=== PATIENT | male | born 1965 | race Caucasian/White ===

== ENCOUNTER → 2016-10-12 | Day surgery (SDC) | payer OTHER ==
[2016-10-05 15:03] VITALS: Ht 157.5 cm; Wt 113.6 kg
[~2016-10-12] VITALS: Ht 157.5 cm; Wt 113.6 kg
[~2016-10-12] MED LIST: ALBU0.08 INH; ALLO300T2 PO; CITA20TA4 PO; IPRASOL34 INH; LEVO88TA3 PO; LIDOCAINE HCL 2% 2 ML VIAL (20MG/ML) ONE; OXGN; PRLSR20 PO; PROPOFOL IV EMULSION 10 MG/ML 20 ML VIAL IV ONE; SODIUM CHLORIDE 0.9% 500ML 500 ML IV ONE; SYMIN160 INH; UMEC1INH INH
--- NOTE | 2016-10-12 10:25 | Endo History and Physical ---
History & Physical Date of Service: Oct 12, 2016. Chief Complaint: Blood in Stool Referring Physician: Dr Silverio Nava History of Present Illness 51 yo CM who presents for colonoscopy secondary to blood in stool. 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., Anxiety, Reflux, Sleep Apnea, COPD, Thyroid Disease, Depression Past Surgical History Hx Cardiac Surgery: No Hx Internal Defibrillator: No Hx Pacemaker: No Hx Abdominal Surgery: No Hx of Implantable Prosthesis: No Hx Post-Op Nausea and Vomiting: No Hx Cancer Surgery: No Hx Thoracic Surgery: Yes (LEFT VATS PROCEDURE, LUNG BIOPSY-BRONCH) Hx Orthopedic: No Hx Urinary Tract Surgery: Yes (VASECTOMY) Family History Polyp Social History Smoking Status: Never Smoker Hx Substance Use: No Hx Alcohol Use: No Allergies Coded Allergies: No Known Allergies (Unverified , 10/12/16) Current Medications Reported Home Medications Medications Dose Route/Sig Max Daily Dose Days Date Category Prilosec (Omeprazole) 20 Mg Capcr 20 Mg PO DAILYBB 10/12/16 Reported Oxygen Gas 2 Liters NA HS 10/05/16 Reported Citalopram Hydrobromide 20 Mg Tab 1.5 Tab PO QAM 90 10/05/16 Reported Incruse Ellipta (Umeclidinium [place]) 62.5 Mcg/Inh Inh 1 Dose INH QAM 10/05/16 Reported Symbicort 160/4.5 Inhaler (Budesonide/Formoterol Fumarate) Aero 2 Puffs INH QAM 10/05/16 Reported Zyloprim (Allopurinol) 300 Mg Tab 300 Mg PO QAM 10/05/16 Reported Levothyroxine Sodium 88 Mcg Tab 1 Tab PO QAM 90 10/05/16 Reported Duoneb (Albuterol/Ipratropium) Kimberly 1 Treatment INH BID 11/26/13 Reported Vital Signs Weight (Kilograms): 113.64 Height (Feet): 5 Height (Inches): 2 Date Time Temp Pulse Resp B/P Pulse Ox O2 Delivery O2 Flow Rate FiO2 10/12/16 10:06 36.8 77 18 119/79 91 Room Air Physical Exam General Appearance: WD/WN, no apparent distress Respiratory/Chest: Auscultation: breath sounds normal Cardiovascular: Heart Auscultation: RRR Abdomen: Bowel Sounds: normal Inspection & Palpation: soft, non-distended, no tenderness, guarding & rebound Assessment and Plan Assessment: 51 yo CM who presents for colonoscopy secondary to blood in stool. Plan: Proceed with colonoscopy.
--- NOTE | 2016-10-12 11:00 | Discharge Instructions ---
Endoscopy Patient Instructions Date / Procedure(s) Performed Oct 12, 2016. Colonoscopy Allergy Information Coded Allergies: No Known Allergies (Unverified , 10/12/16) Discharge Date / Findings Oct 12, 2016. Diverticulosis Internal hemorrhoids Medication Instructions OK to resume all medications today as prescribed Reported Home Medications Medications Dose Route/Sig Max Daily Dose Days Date Category Prilosec (Omeprazole) 20 Mg Capcr 20 Mg PO DAILYBB 10/12/16 Reported Oxygen Gas 2 Liters NA HS 10/05/16 Reported Citalopram Hydrobromide 20 Mg Tab 1.5 Tab PO QAM 90 10/05/16 Reported Incruse Ellipta (Umeclidinium Dozier) 62.5 Mcg/Inh Inh 1 Dose INH QAM 10/05/16 Reported Symbicort 160/4.5 Inhaler (Budesonide/Formoterol Fumarate) Aero 2 Puffs INH QAM 10/05/16 Reported Zyloprim (Allopurinol) 300 Mg Tab 300 Mg PO QAM 10/05/16 Reported Levothyroxine Sodium 88 Mcg Tab 1 Tab PO QAM 90 10/05/16 Reported Duoneb (Albuterol/Ipratropium) Kimberly 1 Treatment INH BID 11/26/13 Reported Provider Instructions Activity Restrictions - No exercising or heavy lifting for 24 hours. - Do not drink alcohol the day of the procedure. - Do not drive a car or operate machinery until the day after the procedure. - Do not make any important decisions or sign important papers in 24 hours after the procedure. Following Day: - Return to full activity which may include returning to work/school. Diet Start your diet with liquids and light foods (jello, soup, juice, toast). Then eat your usual diet if not nauseated. Treatment For Common After Affects For mild abdominal pain, bloating, or excessive gas: - Rest - Eat lightly - Lie on right side Follow-Up Information Follow-up with Dr Mendez,Dr Sawyer as scheduled Anesthesia Information What You Should Know You have had a procedure that required some medicine to reduce anxiety and discomfort. This treatment is called moderate sedation. After receiving the treatment, you may be sleepy, but you will be able to breathe on your own. The effects of the treatment may last for several hours. Follow these instructions along with Activity/Diet recommendations noted above: * Do NOT do anything where dizziness or clumsiness would be dangerous. * Rest quietly at home today, then you can be up and about tomorrow. * Have a responsible person stay with you the rest of today. * You may have had an I.V. today. If so, you may take the dressing off later today. Recommendations Call your doctor if: * Trouble breathing * Continuous vomiting for more than 24 hours * Temperature above 101 degrees * Severe abdominal pain or bloating * Pain not relieved by pain medicine ordered * There is increased drainage or redness from any incision * A large amount of rectal bleeding greater than 2-3 tablespoons. (If you had a polyp/s removed or have hemorrhoids, a small amount of blood - from the rectum is to be expected.) * You have any unanswered questions or concerns. IN THE EVENT OF A SERIOUS EMERGENCY, GO TO THE NEAREST EMERGENCY ROOM Your discharge instructions were prepared by provider Devin Dutta. Patient Instructions Signature Page Billy Alves Patient (or Guardian) Signature/Date: I have read and understand the instructions given to me by my caregivers. Caregiver/RN/Doctor Signature/Date: The above-named patient and/or guardian has received patient instructions on this date. + Original Patient Signature Page (only) stays with chart. Please make copy for patient.
--- NOTE | 2016-10-12 11:06 | GI REPORT ---
Procedure Date: 10/12/2016 10:37 AM Procedure: Colonoscopy Indications: Rectal bleeding Medicines: Monitored Anesthesia Care Complications: No immediate complications. Estimated Blood Loss: Estimated blood loss: none. Procedure: Pre-Anesthesia Assessment: - Prior to the procedure, a History and Physical was performed, and patient medications and allergies were reviewed. The patient's tolerance of previous anesthesia was also reviewed. The risks and benefits of the procedure and the sedation options and risks were discussed with the patient. All questions were answered, and informed consent was obtained. Prior Anticoagulants: The patient has taken no previous anticoagulant or antiplatelet agents. ASA Grade Assessment: III - A patient with severe systemic disease. After reviewing the risks and benefits, the patient was deemed in satisfactory condition to undergo the procedure. After I obtained informed consent, the scope was passed under direct vision. Throughout the procedure, the patient's blood pressure, pulse, and oxygen saturations were monitored continuously. The On-site loaner was introduced through the anus and advanced to the terminal ileum. The colonoscopy was performed without difficulty. The patient tolerated the procedure well. The quality of the bowel preparation was good. The terminal ileum, ileocecal valve, appendiceal orifice, and rectum were photographed. Findings: Multiple small-mouthed diverticula were found in the sigmoid colon. Non-bleeding internal hemorrhoids were found during retroflexion. The hemorrhoids were small. Impression: - Diverticulosis in the sigmoid colon. - Non-bleeding internal hemorrhoids. - No specimens collected. Recommendation: - Resume previous diet. - Continue present medications. - Repeat colonoscopy in 10 years for surveillance. - Return to primary care physician as previously scheduled. Devin Dutta, DO 10/12/2016 11:05:57 AM This report has been signed electronically. Note Initiated On: 10/12/2016 10:37 AM I attest to the content of the Intraoperative Record and orders documented therein, exceptions below
[2016-10-12 11:29] VITALS: BP 158/96; PULSE 69; O2SAT 93
--- NOTE | 2016-10-12 14:03 | Anesthesiology Progress Note ---
Anesthesia Post Op Note Date & Time Oct 12, 2016 at 14:03 Vital Signs Pain Intensity: 0 Vital Signs Past 12 Hours Date Time Temp Pulse Resp B/P Pulse Ox O2 Delivery O2 Flow Rate FiO2 10/12/16 11:29 69 18 158/96 93 Room Air 10/12/16 11:15 74 18 158/97 94 Room Air 10/12/16 11:00 77 18 98/57 95 Room Air 10/12/16 10:06 36.8 77 18 119/79 91 Room Air Notes Mental Status: alert / awake / arousable, participated in evaluation Pt Amnestic to Procedure: Yes Nausea / Vomiting: adequately controlled Pain: adequately controlled Airway Patency, RR, SpO2: stable & adequate BP & HR: stable & adequate Hydration State: stable & adequate Anesthetic Complications: no major complications apparent
== END | disposition home or self-care (01) ==
LOC: C.GI 09:34
PROVIDERS: ATTEND Internal Medicine
DX: K62.5 Hemorrhage of anus and rectum (principal); K57.30 Diverticulosis of large intestine without perforation or abscess without bleeding; K64.8 Other hemorrhoids; K21.9 Gastro-esophageal reflux disease without esophagitis; F41.9 Anxiety disorder, unspecified; F32.9 Major depressive disorder, single episode, unspecified; J44.9 Chronic obstructive pulmonary disease, unspecified; G47.30 Sleep apnea, unspecified; E07.9 Disorder of thyroid, unspecified; Z98.890 Other specified postprocedural states

== ENCOUNTER 2017-12-15 13:43 | Inpatient (IN) | payer OTHER ==
[~2017-12-15] VITALS: Ht 157.5 cm; Wt 112.0 kg
[~2017-12-15 13:43] MED LIST changes: -ALBU0.08 INH; -ALLO300T2 PO; -CITA20TA4 PO; -LIDOCAINE HCL 2% 2 ML VIAL (20MG/ML) ONE; -OXGN; -PROPOFOL IV EMULSION 10 MG/ML 20 ML VIAL IV ONE; -SODIUM CHLORIDE 0.9% 500ML 500 ML IV ONE; -UMEC1INH INH
--- NOTE | 2017-12-15 14:13 | EMERGENCY ROOM VISIT NOTE ---
History Report prepared by Oswald: Rodolfo Machado Under the Supervision of: Dr. Jamin Puckett M.D. First contact with patient: 14:06 Chief Complaint: SYNCOPE Stated Complaint: PASSED OUT FELL ON FLOOR History of Present Illness The patient is a 52 year old male who presents to the Emergency Room via EMS with complaints of a syncopal episode that occurred prior to arrival today. Per the patient's , the patient was talking with family, and he started with a cough, and then had garbled speech. The patient then went to stand up, and he keeled over, fell, and passed out to the ground. After he was down on the ground , he kept jerking "like he was having a seizure". The patient took about 3 to 4 minutes to get back to normal mental status. Per the patient's , the patient had a lot of blood in his stool a couple months ago, but was never seen for that. 2 weeks ago, the patient was seen at an ED for abdominal pain that the patient states that he still has been having. The patient adds that his chest is tight at the moment. Per the patient's , the patient has a noted lump on the back of his head. Source of History: patient, spouse/significant other Onset: [employer] ENG[employer]ER today Position: other (global) Symptom Intensity: took 3 to 4 minutes to get back to normal mental status Quality: other (syncope) Timing: other (episode) Associated Symptoms: + LOC, + chest pain, + abdominal pain Note: Associated symptoms: Jerking on ground during episode. Review of Systems See HPI for pertinent positives and negatives. A total of ten systems were reviewed and were otherwise negative. Past Medical & Surgical Medical Problems: (1) COPD (chronic obstructive pulmonary disease) (2) Depression (3) GERD (gastroesophageal reflux disease) (4) Gout (5) Hypothyroidism (6) Hypothyroidism (7) Kidney stone (8) Nephrolithiasis (9) Nocturnal hypoxia (10) Pulmonary sarcoidosis Surgical Problems: (1) H/O vasectomy Family History No pertinent family history Social History Smoking Status: Never Smoker Drug Use: none Marital Status: Housing Status: lives with family Occupation Status: employed Current/Historical Medications Scheduled Allopurinol (Zyloprim), 300 MG PO QAM Citalopram Hydrobromide (Citalopram Hydrobromide), 10 MG PO DAILY Ergocalciferol (Vitamin D 64923 Unit), 1 CAP PO WK Home O2 Therapy (Oxygen), 2 LITERS NA PRN Levothyroxine Sodium (Levothyroxine Sodium), 100 MCG PO DAILY Omeprazole (Prilosec), 20 MG PO DAILYBB Umeclidinium Elmo (Incruse Ellipta), 1 DOSE INH QAM Scheduled PRN Acetaminophen (Tylenol), 1,000 MG PO Q6 PRN for Headache or Pain Ipratropium-Albuterol (Duoneb), 1 TREATMENT INH BID PRN for SOB/Wheezing Allergies Coded Allergies: No Known Allergies (Unverified , 10/12/16) Physical Exam Vital Signs Date Time Temp Pulse Resp B/P (MAP) Pulse Ox O2 Delivery O2 Flow Rate FiO2 12/15/17 19:25 68 18 131/89 94 12/15/17 18:58 68 18 131/89 94 Room Air 12/15/17 16:59 60 18 137/86 12/15/17 15:25 36.8 81 18 127/87 96 Room Air 12/15/17 14:26 73 12/15/17 13:48 36.5 77 20 162/115 96 Room Air Physical Exam Physical Exam GENERAL: He is oriented to person, place, and time. He appears well-developed and well-nourished. He does not appear distressed. ____ HENT: Exam performed. Head: Normocephalic and atraumatic. Right Ear: External ear normal. No mastoid tenderness. Left Ear: External ear normal. No mastoid tenderness. Mouth/Throat: The oropharynx is clear and moist. No trismus in the jaw. No dental abscesses or uvula swelling. No oropharyngeal exudate or tonsillar abscesses. ____ EYES: Conjunctivae and EOM are normal. Pupils are equal, round, and reactive to light. Right eye exhibits no discharge. Left eye exhibits no discharge. No scleral icterus. ____ NECK: Normal range of motion. Neck supple. No JVD present. No spinous process tenderness present. No carotid bruit present. No rigidity. No tracheal deviation and normal range of motion present. No Brudzinski's sign and no Kernig 's sign noted. ____ CV: Normal rate, regular rhythm, normal heart sounds and intact distal pulses. There is no peripheral edema. Palpable radial pulses bue. ____ PULM/CHEST: Effort normal and breath sounds normal. No respiratory distress. No stridor. He has no wheezes. He has no rales. Chest Wall: He exhibits no tenderness. ____ ABD: The abdomen is soft. Bowel sounds are normal. He has no distension. No mass is present. There is no tenderness. There is no rebound, no guarding, no Sharma's sign and no tenderness at McBurney's point. Rovsig negative MUSC/SKEL: Normal range of motion. There is no peripheral edema, tenderness or deformity. LYMPH: No cervical adenopathy. ____ NEURO: He is alert and oriented to person, place, and time. He has normal strength. No cranial nerve deficit or sensory deficit. Coordination and gait normal. GCS eye subscore is 4. GCS verbal subscore is 5. GCS motor subscore is 6. Cerebellar tests wnl. ____ SKIN: Skin is warm and dry. He is not diaphoretic. ____ PSYCH: He has a normal mood and affect. He behavior is normal. Judgment and thought content normal. ____ Medical Decision & Procedures ER Provider Diagnostic Interpretation: Radiology results as stated below per my review and radiologist interpretation: HEAD WITHOUT CONTRAST (CT) CLINICAL HISTORY: 52 years-old Male with syncope vs seizure. Acute nausea with syncope and headache TECHNIQUE: Multiple axial CT images of the head were obtained without contrast. A dose lowering technique was utilized adhering to the principles of ALARA. CT DOSE: 614.27 mGy.cm COMPARISON: None. FINDINGS: No acute intracranial hemorrhage, midline shift, intracranial mass, hydrocephalus, territorial ischemia or abnormal extra-axial collection. The calvarium is intact. The paranasal sinuses, mastoid air cells, and middle ear cavities are clear. Suggested postsurgical changes of the right mastoid air cells. IMPRESSION: No acute intracranial abnormal abnormality. The above report was generated using voice recognition software. It may contain grammatical, syntax or spelling errors. Electronically signed by: Ed Justin M.D. 12/15/2017 2:54 PM Dictated Date/Time: 12/15/2017 2:52 PM CHEST 2 VIEWS ROUTINE CLINICAL HISTORY: 52 years-old Male presenting with syncope vs seizure. TECHNIQUE: PA and lateral views of the chest were obtained. COMPARISON: 06/15/2016. FINDINGS: Atherosclerosis of aortic arch. Cardiac silhouette enlarged. Lungs and pleural spaces clear. Degenerative changes of the thoracic spine. Upper abdomen normal. IMPRESSION: 1. Cardiomegaly. No other convincing evidence of acute cardiopulmonary disease. Electronically signed by: Israel Umana M.D. 12/15/2017 3:54 PM Dictated Date/Time: 12/15/2017 3:53 PM Laboratory Results 12/15/17 14:30 Red Blood Count 4.85, Mean Corpuscular Volume 90.1, Mean Corpuscular Hemoglobin 30.9, Mean Corpuscular Hemoglobin Concent 34.3, Mean Platelet Volume 9.8, Neutrophils (%) (Auto) 58.5, Lymphocytes (%) (Auto) 25.5, Monocytes (%) (Auto) 11.9, Eosinophils (%) (Auto) 3.3, Basophils (%) (Auto) 0.5, Neutrophils # (Auto ) 3.60, Lymphocytes # (Auto) 1.57, Monocytes # (Auto) 0.73, Eosinophils # (Auto ) 0.20, Basophils # (Auto) 0.03 12/15/17 14:30 Test 12/15/17 14:30 12/15/17 15:32 12/15/17 20:00 White Blood Count 6.15 K/uL (4.8-10.8) Red Blood Count 4.85 M/uL (4.7-6.1) Hemoglobin 15.0 g/dL (14.0-18.0) Hematocrit 43.7 % (42-52) Mean Corpuscular Volume 90.1 fL (80-100) Mean Corpuscular Hemoglobin 30.9 pg (25-34) Mean Corpuscular Hemoglobin Concent 34.3 g/dl (32-36) Platelet Count 228 K/uL (130-400) Mean Platelet Volume 9.8 fL (7.4-10.4) Neutrophils (%) (Auto) 58.5 % Lymphocytes (%) (Auto) 25.5 % Monocytes (%) (Auto) 11.9 % Eosinophils (%) (Auto) 3.3 % Basophils (%) (Auto) 0.5 % Neutrophils # (Auto) 3.60 K/uL (1.4-6.5) Lymphocytes # (Auto) 1.57 K/uL (1.2-3.4) Monocytes # (Auto) 0.73 K/uL (0.11-0.59) Eosinophils # (Auto) 0.20 K/uL (0-0.5) Basophils # (Auto) 0.03 K/uL (0-0.2) RDW Standard Deviation 41.6 fL (36.4-46.3) RDW Coefficient of Variation 12.8 % (11.5-14.5) Immature Granulocyte % (Auto) 0.3 % Immature Granulocyte # (Auto) 0.02 K/uL (0.00-0.02) Prothrombin Time 10.1 SECONDS (9.0-12.0) Prothromb Time International Ratio 1.0 (0.9-1.1) Anion Gap 8.0 mmol/L (3-11) Est Creatinine Clear Calc Drug Dose 83.8 ml/min Estimated GFR () 87.1 Estimated GFR (Non- 75.1 BUN/Creatinine Ratio 15.6 (10-20) Calcium Level 9.0 mg/dl (8.5-10.1) Magnesium Level 2.1 mg/dl (1.8-2.4) Total Bilirubin 0.6 mg/dl (0.2-1) Direct Bilirubin 0.1 mg/dl (0-0.2) Aspartate Amino Transf (AST/SGOT) 30 U/L (15-37) Alanine Aminotransferase (ALT/SGPT) 54 U/L (12-78) Alkaline Phosphatase 90 U/L (45-117) Total Protein 7.5 gm/dl (6.4-8.2) Albumin 4.1 gm/dl (3.4-5.0) Lipase 167 U/L (73-393) Thyroid Stimulating Hormone (TSH) 6.610 uIu/ml (0.300-4.500) Bedside Glucose 83 mg/dl (70-99) Laboratory results reviewed by me Medications Administered Medications (Trade) Dose Ordered Sig/Francesca Route Start Time Stop Time Status Last Admin Dose Admin Aspirin (Aspirin Chew) 324 mg NOW STAT PO 12/15/17 18:25 12/15/17 18:46 DC 12/15/17 19:01 324 MG ECG Per My Interpretation Indication: syncope Rate (beats per minute): 69 Rhythm: sinus rhythm Findings: other (WI, QRS, and QTC intervals are within normal limits. No ST elevation or ST depression.) Comparison ECG Date: compared to EKG done on April 2015, new T-wave inversion in lead 3 ED Course 1408: The patient was evaluated in room C1B. A complete history and physical exam was performed. 1614: I reevaluated the patient and his vital signs are stable. Labs and imaging are within normal limits. The patient had a questionable syncope versus seizure episode, and given his reporting of chest pain, I recommended placing the patient in the hospital for seizure versus syncope workup. The patient and at bedside agree that the patient needs to stay given the patient has poor follow-up and has not followed-up after any previous ER visits. I discussed the patient with Chelsea Friedman - she will evaluate the patient for further treatment. Medical Decision vital signs are stable. Labs and imaging are within normal limits. The patient had a questionable syncope versus seizure episode, and given his reporting of chest pain, I recommended placing the patient in the hospital for seizure versus syncope workup. The patient and at bedside agree that the patient needs to stay given the patient has poor follow-up and has not followed-up after any previous ER visits. I discussed the patient with Chelsea Friedman - she will evaluate the patient for further treatment. Medication Reconcilliation Current Medication List: was personally reviewed by me Blood Pressure Screening Patient's blood pressure: Normal blood pressure Consults Time Called: 1615 Consulting Physician: Chelsea Friedman Returned Call: 1617 I discussed the patient with Chelsea Friedman - she will evaluate the patient for further treatment. Impression Primary Impression: Syncope Additional Impression: Chest pain Scribe Attestation The scribe's documentation has been prepared under my direction and personally reviewed by me in its entirety. I confirm that the note above accurately reflects all work, treatment, procedures, and medical decision making performed by me. The chart was completed utilizing [employer] voice recognition software. Grammatical errors, random word insertions, pronoun errors, and incomplete sentences are an occasional consequence of this system due to software limitations, ambient noise, and hardware issues. Any formal questions or concerns about the content, text, or information contained within the body of this dictation should be directly addressed to the physician for clarification. Departure Information Dispostion Being Evaluated By Hospitalist Referrals No Doctor, Assigned (PCP) Patient Instructions My [facility] Problem Qualifiers Primary Impression: Syncope Syncope type: unspecified Qualified Codes: R55 - Syncope and collapse Additional Impression: Chest pain Chest pain type: unspecified Qualified Codes: R07.9 - Chest pain, unspecified
--- NOTE | 2017-12-15 14:55 | DIAGNOSTIC IMAGING REPORT ---
HEAD WITHOUT CONTRAST (CT) CLINICAL HISTORY: 52 years-old Male with syncope vs seizure. Acute nausea with syncope and headache TECHNIQUE: Multiple axial CT images of the head were obtained without contrast. A dose lowering technique was utilized adhering to the principles of ALARA. CT DOSE: 614.27 mGy.cm COMPARISON: None. FINDINGS: No acute intracranial hemorrhage, midline shift, intracranial mass, hydrocephalus, territorial ischemia or abnormal extra-axial collection. The calvarium is intact. The paranasal sinuses, mastoid air cells, and middle ear cavities are clear. Suggested postsurgical changes of the right mastoid air cells. IMPRESSION: No acute intracranial abnormal abnormality. The above report was generated using voice recognition software. It may contain grammatical, syntax or spelling errors. Electronically signed by: Ed Justin M.D. 12/15/2017 2:54 PM Dictated Date/Time: 12/15/2017 2:52 PM
[2017-12-15 14:57] LABS: BASO % 0.5 %; BASO ABS # 0.03 K/uL (0-0.2); EOS % 3.3 %; HEMATOCRIT 43.7 % (42-52); IG# 0.02 K/uL (0.00-0.02); LYMPH % 25.5 %; LYMPH ABS # 1.57 K/uL (1.2-3.4); MEAN CELL VOLUME 90.1 fL (80-100); MEAN CORPUSCULAR HEMOGLOBIN 30.9 pg (25-34); MEAN CORPUSCULAR HGB CONC 34.3 g/dl (32-36); MEAN PLATELET VOLUME 9.8 fL (7.4-10.4); MONO % 11.9 %; MONO ABS # 0.73 K/uL (0.11-0.59); NEUT % 58.5 %; PLATELET COUNT 228 K/uL (130-400); RED CELL DISTRIBUTION WIDTH CV 12.8 % (11.5-14.5); RED CELL DISTRIBUTION WIDTH SD 41.6 fL (36.4-46.3); WHITE BLOOD COUNT 6.15 K/uL (4.8-10.8)
[2017-12-15] MEDS ORDERED: ALLO300T2 PO (15:02)
[2017-12-15] MEDS ORDERED: CITA20TA4 PO (15:02)
[2017-12-15] MEDS ORDERED: OXGN (15:02)
[2017-12-15] MEDS ORDERED: UMEC1INH INH (15:02)
[2017-12-15 15:16] LABS: BLOOD UREA NITROGEN 18 mg/dl (7-18); CARBON DIOXIDE 24 mmol/L (21-32); CREATININE 1.12 mg/dl (0.60-1.40); GLUCOSE 87 mg/dl (70-99); POTASSIUM 3.9 mmol/L (3.5-5.1); SODIUM 138 mmol/L (136-145)
--- NOTE | 2017-12-15 15:56 | DIAGNOSTIC IMAGING REPORT ---
CHEST 2 VIEWS ROUTINE CLINICAL HISTORY: 52 years-old Male presenting with syncope vs seizure. TECHNIQUE: PA and lateral views of the chest were obtained. COMPARISON: 06/15/2016. FINDINGS: Atherosclerosis of aortic arch. Cardiac silhouette enlarged. Lungs and pleural spaces clear. Degenerative changes of the thoracic spine. Upper abdomen normal. IMPRESSION: 1. Cardiomegaly. No other convincing evidence of acute cardiopulmonary disease. Electronically signed by: Israel Umana M.D. 12/15/2017 3:54 PM Dictated Date/Time: 12/15/2017 3:53 PM
[2017-12-15] MEDS ORDERED: LEVO100T7 PO (16:53)
[2017-12-15] MEDS ORDERED: ERGO500011 PO (16:53)
[2017-12-15] MEDS ORDERED: IPRASOL4 INH (16:55)
[2017-12-15] MEDS ORDERED: ACET-1256 PO (16:55)
[2017-12-15] MEDS ORDERED: ONDANSETRON INJ 2 MG/ML 2 ML VIAL IV PRN (18:00)
[2017-12-15] MEDS ORDERED: POLYETHYLENE (MIRALAX) 17 GM PACK PO PRN (18:00)
[2017-12-15] MEDS ORDERED: ASPIRIN 81 MG CHEW PO STA (18:25)
[2017-12-15] MEDS ORDERED: CITA10TA4 PO (18:25)
[2017-12-15] MEDS ORDERED: ALBUT/IPRATROP 3MG/0.5MG NEB 3 ML VIAL INH PRN (18:30)
--- NOTE | 2017-12-15 18:54 | History and Physical ---
History & Physical Date & Time of Service: Dec 15, 2017 at 18:30 Chief Complaint: Passed Out Fell On Floor Primary Care Physician: Leonor Dorman History of Present Illness Source: patient, spouse, hospital records The patient is a 52-year-old man who presents to the emergency room via EMS reporting a syncopal episode that occurred prior to arrival. Per the patient's , the patient was talking with family and he started with a cough. He then had garbled speech subsequently stood up and passed out onto the floor. After he was down on the ground he continued to jerk "like he was having a seizure." The patient's reports that his arms and legs were moving his eyes were staring straight forward, and he was unresponsive. She states that he was not speaking during this time. This time. Lasted 3-4 minutes after which time the patient was of normal mental status and went to get up off the ground and sit on a chair close by. The patient does not remember the jerking episode. He does remember talking to his shortly after the episode and telling her not to call 911. Review of systems reveals some slight chest pain in the mid substernal region that is been present consistently for the last 2 weeks but is worse with exertion. The patient chronically sweats and has chronic shortness of breath from pulmonary sarcoid without worsening recently, and does not know if these symptoms are related to his chest pain. He otherwise cannot identify a trigger for the chest pain other than the exertion. Another symptom that is worse with exertion is numbness in his hands and his feet bilaterally as well as in his entire face bilaterally. This is a chronic symptom for him. Historically he reports a large amount of blood in his stool a couple of months ago and some intermittent right upper quadrant abdominal pain that has been going on for 2 weeks now. The patient cannot identify a trigger for the abdominal pain. He reports infraumbilical pain that has been there for a couple of years; he reports a normal colonoscopy in the last 12 months. He denies speaking with a doctor about his lower abdominal pain. He reports having chest tightness currently. The patient denies any history of seizures, passing out or any strokelike symptoms in the past. He reports a chronic headache that somewhat appears associated with the face tingling. Aside from the cough that was productive of mucus giving him some nausea this morning, he reports no history of cough recently, no fevers or chills recently. He denies any UTI symptoms or any other infectious symptoms. Past Medical/Surgical History Medical Problems: (1) COPD (chronic obstructive pulmonary disease) Status: Chronic (2) Depression Status: Chronic (3) GERD (gastroesophageal reflux disease) Status: Chronic (4) Gout Status: Chronic (5) Hypothyroidism Status: Chronic (6) Hypothyroidism Status: Chronic (7) Kidney stone Status: Resolved (8) Nephrolithiasis Status: Chronic (9) Nocturnal hypoxia Status: Chronic (10) Pulmonary sarcoidosis Permanent Comment: s/p VATS Status: Chronic Surgical Problems: (1) H/O vasectomy Status: Chronic Family History FH: seizures MOTHER Social History Smoking Status: Never Smoker Smokeless Tobacco Use: Yes Drug Use: none Marital Status: Housing status: lives with significant other Occupational Status: employed Immunizations History of Influenza Vaccine: Unknown History of Tetanus Vaccine?: Unknown History of Pneumococcal: Unknown History of Hepatitis B Vaccine: Unknown Allergies Coded Allergies: No Known Allergies (Unverified , 10/12/16) Home Medications Scheduled Allopurinol (Zyloprim), 300 MG PO QAM Citalopram Hydrobromide (Citalopram Hydrobromide), 10 MG PO DAILY Ergocalciferol (Vitamin D 05893 Unit), 1 CAP PO WK Home O2 Therapy (Oxygen), 2 LITERS NA PRN Levothyroxine Sodium (Levothyroxine Sodium), 100 MCG PO DAILY Omeprazole (Prilosec), 20 MG PO DAILYBB Umeclidinium [place] (Incruse Ellipta), 1 DOSE INH QAM Scheduled PRN Acetaminophen (Tylenol), 1,000 MG PO Q6 PRN for Headache or Pain Ipratropium-Albuterol (Duoneb), 1 TREATMENT INH BID PRN for SOB/Wheezing Review of Systems At least 10 systems were reviewed and negative except as indicated in HPI. Physical Exam Vital Signs Date Time Temp Pulse Resp B/P (MAP) Pulse Ox O2 Delivery O2 Flow Rate FiO2 12/15/17 15:25 36.8 81 18 127/87 96 Room Air 12/15/17 14:26 73 12/15/17 13:48 36.5 77 20 162/115 96 Room Air General Appearance: no apparent distress, + obese Head: normocephalic, atraumatic Eyes: normal inspection, PERRL, EOMI, sclerae normal ENT: hearing grossly normal, pharynx normal Neck: supple, no adenopathy, no JVD, trachea midline Respiratory/Chest: lungs clear, normal breath sounds, no respiratory distress, no accessory muscle use, + pertinent finding (Tenderness to palpation of left sternal border) Cardiovascular: regular rate, rhythm, no edema, no gallop, no JVD, no murmur, normal peripheral pulses Abdomen/GI: normal bowel sounds, soft, no organomegaly, + tenderness ( Tenderness to palpation with guarding in right upper quadrant and infraumbilical area) Back: normal inspection Extremities/Musculoskelatal: normal inspection, no pedal edema, normal range of motion 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, no motor/sensory deficits, alert, normal mood/affect, normal reflexes, oriented x 3, + pertinent finding ( Negative Romberg, negative finger to nose, negative rapid alternating movements) Skin: normal color, warm/dry, no rash Diagnostics Laboratory Results 12/15/17 14:30 Red Blood Count 4.85, Mean Corpuscular Volume 90.1, Mean Corpuscular Hemoglobin 30.9, Mean Corpuscular Hemoglobin Concent 34.3, Mean Platelet Volume 9.8, Neutrophils (%) (Auto) 58.5, Lymphocytes (%) (Auto) 25.5, Monocytes (%) (Auto) 11.9, Eosinophils (%) (Auto) 3.3, Basophils (%) (Auto) 0.5, Neutrophils # (Auto ) 3.60, Lymphocytes # (Auto) 1.57, Monocytes # (Auto) 0.73, Eosinophils # (Auto ) 0.20, Basophils # (Auto) 0.03 12/15/17 14:30 Test 12/15/17 14:30 12/15/17 15:32 12/15/17 18:06 12/15/17 18:27 White Blood Count 6.15 K/uL (4.8-10.8) Red Blood Count 4.85 M/uL (4.7-6.1) Hemoglobin 15.0 g/dL (14.0-18.0) Hematocrit 43.7 % (42-52) Mean Corpuscular Volume 90.1 fL (80-100) Mean Corpuscular Hemoglobin 30.9 pg (25-34) Mean Corpuscular Hemoglobin Concent 34.3 g/dl (32-36) Platelet Count 228 K/uL (130-400) Mean Platelet Volume 9.8 fL (7.4-10.4) Neutrophils (%) (Auto) 58.5 % Lymphocytes (%) (Auto) 25.5 % Monocytes (%) (Auto) 11.9 % Eosinophils (%) (Auto) 3.3 % Basophils (%) (Auto) 0.5 % Neutrophils # (Auto) 3.60 K/uL (1.4-6.5) Lymphocytes # (Auto) 1.57 K/uL (1.2-3.4) Monocytes # (Auto) 0.73 K/uL (0.11-0.59) Eosinophils # (Auto) 0.20 K/uL (0-0.5) Basophils # (Auto) 0.03 K/uL (0-0.2) RDW Standard Deviation 41.6 fL (36.4-46.3) RDW Coefficient of Variation 12.8 % (11.5-14.5) Immature Granulocyte % (Auto) 0.3 % Immature Granulocyte # (Auto) 0.02 K/uL (0.00-0.02) Anion Gap 8.0 mmol/L (3-11) Est Creatinine Clear Calc Drug Dose 83.8 ml/min Estimated GFR () 87.1 Estimated GFR (Non- 75.1 BUN/Creatinine Ratio 15.6 (10-20) Calcium Level 9.0 mg/dl (8.5-10.1) Troponin I < 0.015 ng/ml (0-0.045) Bedside Glucose 83 mg/dl (70-99) Test 12/15/17 18:30 Results Past 24 Hours Test 12/15/17 14:30 12/15/17 15:32 12/15/17 18:06 12/15/17 18:27 Range/Units White Blood Count 6.15 4.8-10.8 K/uL Red Blood Count 4.85 4.7-6.1 M/uL Hemoglobin 15.0 14.0-18.0 g/dL Hematocrit 43.7 42-52 % Mean Corpuscular Volume 90.1 80-100 fL Mean Corpuscular Hemoglobin 30.9 25-34 pg Mean Corpuscular Hemoglobin Concent 34.3 32-36 g/dl Platelet Count 228 130-400 K/uL Mean Platelet Volume 9.8 7.4-10.4 fL Neutrophils (%) (Auto) 58.5 % Lymphocytes (%) (Auto) 25.5 % Monocytes (%) (Auto) 11.9 % Eosinophils (%) (Auto) 3.3 % Basophils (%) (Auto) 0.5 % Neutrophils # (Auto) 3.60 1.4-6.5 K/uL Lymphocytes # (Auto) 1.57 1.2-3.4 K/uL Monocytes # (Auto) 0.73 0.11-0.59 K/uL Eosinophils # (Auto) 0.20 0-0.5 K/uL Basophils # (Auto) 0.03 0-0.2 K/uL RDW Standard Deviation 41.6 36.4-46.3 fL RDW Coefficient of Variation 12.8 11.5-14.5 % Immature Granulocyte % (Auto) 0.3 % Immature Granulocyte # (Auto) 0.02 0.00-0.02 K/uL Sodium Level 138 136-145 mmol/L Potassium Level 3.9 3.5-5.1 mmol/L Chloride Level 106 98-107 mmol/L Carbon Dioxide Level 24 21-32 mmol/L Anion Gap 8.0 3-11 mmol/L Blood Urea Nitrogen 18 7-18 mg/dl Creatinine 1.12 0.60-1.40 mg/dl Est Creatinine Clear Calc Drug Dose 83.8 ml/min Estimated GFR () 87.1 Estimated GFR (Non- 75.1 BUN/Creatinine Ratio 15.6 10-20 Random Glucose 87 70-99 mg/dl Calcium Level 9.0 8.5-10.1 mg/dl Troponin I < 0.015 0-0.045 ng/ml Bedside Glucose 83 70-99 mg/dl Diagnostic Radiology CHEST 2 VIEWS ROUTINE CLINICAL HISTORY: 52 years-old Male presenting with syncope vs seizure. TECHNIQUE: PA and lateral views of the chest were obtained. COMPARISON: 06/15/2016. FINDINGS: Atherosclerosis of aortic arch. Cardiac silhouette enlarged. Lungs and pleural spaces clear. Degenerative changes of the thoracic spine. Upper abdomen normal. IMPRESSION: 1. Cardiomegaly. No other convincing evidence of acute cardiopulmonary disease. HEAD WITHOUT CONTRAST (CT) CLINICAL HISTORY: 52 years-old Male with syncope vs seizure. Acute nausea with syncope and headache TECHNIQUE: Multiple axial CT images of the head were obtained without contrast. A dose lowering technique was utilized adhering to the principles of ALARA. CT DOSE: 614.27 mGy.cm COMPARISON: None. FINDINGS: No acute intracranial hemorrhage, midline shift, intracranial mass, hydrocephalus, territorial ischemia or abnormal extra-axial collection. The calvarium is intact. The paranasal sinuses, mastoid air cells, and middle ear cavities are clear. Suggested postsurgical changes of the right mastoid air cells. IMPRESSION: No acute intracranial abnormal abnormality. EKG SR 69, q wave in lead III. Otherwise no ST changes noted. Impression Assessment and Plan 52-year-old man presents after syncopal episode at home with seizure-like activity. 1. Syncope-possible causes include but not limited to orthostatic hypotension as the patient went from sitting to standing position prior to passing out, acute TIA as patient had garbled speech and vascular event is possible with some seizure activity after syncope, new onset seizure. Will rule out structural brain abnormalities with MRI brain combo. Will evaluate the vasculature with MRA of the head and neck. Will order EEG and place him patient on seizure precautions. Will order daily neuro checks and keep him on telemetry with close monitoring. Will order echocardiogram. Will consult neurology. 2. Chest pain-still present with negative troponin, no acute ischemic changes seen on EKG. Chest pain is constantly present but worse with exertion and came months at the same time as this right upper quadrant pain so they may possibly be related. Will trend serial cardiac enzymes overnight and keep patient on telemetry monitoring. Will consult cardiology for assistance with etiology of chest pain as well as recommendations for risk stratification. Full dose aspirin given on admission And will continue daily aspirin. 3. Headache-chronic and associated with facial tingling. Possible aura? Supportive care. 4. Hematochezia-this has cleared recently the patient is hemodynamically stable. Would consider outpatient workup for this barring any episodes during this hospitalization. 5. Abdominal pain-localized to right upper quadrant and infraumbilical area. Will order hepatic panel, lipase, right upper quadrant ultrasound and will evaluate patient in the morning. Infraumbilical pain is reported to be chronic with right upper quadrant pain being acute during the last 2 weeks. 6. Pulmonary sarcoidosis-continue inhaler therapy and nocturnal oxygen 7. Hypothyroidism-TSH pending, continue Synthroid at home dose 8. Tobacco use-declines NicoDerm patch, advised the patient he needs to quit dipping altogether. He reported a commitment to quit. DVT prophylaxis-Lovenox Full code Disposition-telemetry Noemy Coker DO [facility] hospitalist Resuscitation Status VTE Prophylaxis Will order VTE Prophylaxis: Yes
[2017-12-15 19:17] LABS: ALBUMIN 4.1 gm/dl (3.4-5.0); ALKALINE PHOSPHATASE 90 U/L (45-117); ALT/SGPT 54 U/L (12-78); AST/SGOT 30 U/L (15-37); LIPASE 167 U/L (73-393); TOTAL PROTEIN 7.5 gm/dl (6.4-8.2)
--- NOTE | 2017-12-15 19:56 | DIAGNOSTIC IMAGING REPORT ---
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 TECHNIQUE: 3 views of the orbits were obtained. COMPARISON: CT head from 12/15/2017. FINDINGS: No radiopaque intraorbital foreign body. Bony orbits grossly intact. Paranasal sinuses grossly clear. Visualized portion of the calvarium intact. IMPRESSION: No intraorbital metallic foreign body to preclude MRI exam. Electronically signed by: Israel Umana M.D. 12/15/2017 7:54 PM Dictated Date/Time: 12/15/2017 7:54 PM
--- NOTE | 2017-12-15 20:32 | DIAGNOSTIC IMAGING REPORT ---
MRA HEAD WITHOUT CONTRAST CLINICAL HISTORY: 52 years-old Male presenting with found down on floor, blacked out, headache and dizziness. TECHNIQUE: MR angiography of the head was performed without the use of intravenous contrast using 3-D [id number] technique. 3-D volumetric and/or maximum intensity projection (MIP) images were subsequently reconstructed for review. IV contrast: None. COMPARISON: Noncontrast CT head performed earlier the same day. FINDINGS: Anterior circulation: Intracranial portions of the internal carotid arteries patent to the level of the termini. Anterior and middle cerebral arteries patent. Anterior communicating artery patent. Posterior circulation: Right dominant vertebral artery. Intradural portions of the vertebral arteries patent. Posterior inferior cerebellar arteries poorly visualized. Basilar artery patent. Anterior inferior cerebellar arteries poorly visualized. Superior cerebellar and posterior cerebral arteries patent. Posterior communicating arteries hypoplastic or aplastic. IMPRESSION: 1. No significant stenosis, aneurysm, or focal vessel occlusion. Electronically signed by: Israel Umana M.D. 12/15/2017 8:31 PM Dictated Date/Time: 12/15/2017 8:27 PM
--- NOTE | 2017-12-15 21:19 | DIAGNOSTIC IMAGING REPORT ---
MRA NECK COMBO CLINICAL HISTORY: 52 years-old Male presenting with blacked out, woke up on the floor, headache and dizziness intermittently. TECHNIQUE: MR angiography of the neck was performed before and after the administration of intravenous contrast. 3-D volumetric and/or maximum intensity projection (MIP) images were subsequently reconstructed for review. IV contrast: 10 mL of Gadavist. Stenosis measurements were based on NASCET-like criteria. COMPARISON: None. FINDINGS: Localizer images: Unremarkable. Aortic arch: Atherosclerosis of the three-vessel aortic arch. Innominate artery: Patent. Right common carotid artery: Patent. Right internal and external carotid arteries: Right carotid bifurcation patent. Right internal and external carotid arteries widely patent. Left common carotid artery: Patent. Left internal and external carotid arteries: Left carotid bifurcation patent. Left internal and external carotid arteries widely patent. Left subclavian artery: Patent. Vertebral arteries: Right dominant vertebral artery. The origin of the left vertebral artery is not included within the [id number] on postcontrast imaging. Allowing for this, the remaining left vertebral artery is widely patent. Origin and course of the right vertebral artery patent. Other: Limited intracranial evaluation within normal limits. Soft tissues of the neck normal allowing for the phase of contrast. IMPRESSION: 1. No dissection, significant stenosis, or focal vessel occlusion. Electronically signed by: Israel Umana M.D. 12/15/2017 9:18 PM Dictated Date/Time: 12/15/2017 9:14 PM
--- NOTE | 2017-12-15 21:32 | DIAGNOSTIC IMAGING REPORT ---
(LIVER) ABDOMEN LIMITED CLINICAL HISTORY: 52 years-old Male presenting with RUQ pain generally x 2 weeks. TECHNIQUE: Real-time grayscale and limited color Doppler ultrasound imaging of the abdomen limited to the right upper quadrant was performed. COMPARISON: None. FINDINGS: Pancreas: Visualized portions of the pancreatic head and body normal. Liver: Markedly hyperechogenic parenchyma with obscuration of the right hemidiaphragm, likely indicating marked hepatic steatosis. The liver measures 19.4 cm in maximal sagittal dimension. No sonographic evidence of hepatic mass. Main portal vein patent with normal directional flow. Biliary: No intrahepatic biliary ductal dilatation. Common bile duct measures up to 3 mm in diameter. Gallbladder: No evidence of gallstones, gallbladder wall thickening, gallbladder distention, or pericholecystic fluid or inflammatory change. Right kidney: Normal in appearance. No hydronephrosis. Ascites: None. Other: None. IMPRESSION: 1. No cholelithiasis or biliary ductal dilatation. 2. Hepatic steatosis. Correlate with liver function tests to exclude steatohepatitis as a cause for abdominal pain. Electronically signed by: Israel Umana M.D. 12/15/2017 9:31 PM Dictated Date/Time: 12/15/2017 9:30 PM
--- NOTE | 2017-12-15 21:43 | DIAGNOSTIC IMAGING REPORT ---
BRAIN COMBO FOR SEIZURE CLINICAL HISTORY: 52 years-old Male presenting with poss seizure activity after syncopal episode. TECHNIQUE: Multisequence, multiplanar MR imaging of the brain was performed before and after the administration of intravenous contrast. IV contrast: 10 mL of Gadavist. COMPARISON: CT head performed earlier the same day. FINDINGS: Ventricles and sulci normal in size. Brain parenchyma normal in appearance with preserved atkins-white differentiation. No mass effect or midline shift. No restricted diffusion to suggest acute ischemia. No hemorrhage. No extra-axial fluid collection. T2 skull base flow voids preserved. No abnormal parenchymal enhancement. Bone marrow signal intensity within the calvarium within normal limits. IMPRESSION: 1. No acute intracranial pathology. No abnormal enhancement. Electronically signed by: Israel Umana M.D. 12/15/2017 9:42 PM Dictated Date/Time: 12/15/2017 9:37 PM
[2017-12-15 22:21] VITALS: BP 144/95; PULSE 67; TEMP 36.4; Ht 157.5 cm; Wt 112.0 kg
[2017-12-16 02:02] LABS: HEMATOCRIT 43.8 % (42-52); HEMOGLOBIN 14.7 g/dL (14.0-18.0); MEAN CELL VOLUME 90.7 fL (80-100); MEAN CORPUSCULAR HEMOGLOBIN 30.4 pg (25-34); MEAN CORPUSCULAR HGB CONC 33.6 g/dl (32-36); PLATELET COUNT 220 K/uL (130-400); RED CELL DISTRIBUTION WIDTH CV 12.5 % (11.5-14.5); RED CELL DISTRIBUTION WIDTH SD 41.6 fL (36.4-46.3); WHITE BLOOD COUNT 6.79 K/uL (4.8-10.8)
[2017-12-16 02:21] LABS: CREATININE 1.08 mg/dl (0.60-1.40)
[2017-12-16 02:22] LABS: CALCIUM 8.5 mg/dl (8.5-10.1); POTASSIUM 3.8 mmol/L (3.5-5.1)
[2017-12-16 05:06] VITALS: BP 130/79; PULSE 61; TEMP 36.5; O2SAT 90
[2017-12-16] MEDS: LEVOTHYROXINE 100 MCG TAB PO SCH (06:10)
[2017-12-16 07:36] VITALS: BP_SYST 124; BP_SYST 134; BP_DIAS 79; BP_DIAS 86; BP_DIAS 90; PULSE 64; TEMP 36.6; O2SAT 95
[2017-12-16] MEDS: ALLOPURINOL 300 MG TAB PO SCH (08:33)
[2017-12-16] MEDS: CITALOPRAM 20 MG TAB PO SCH (08:33)
[2017-12-16] MEDS: ASPIRIN 81 MG ECTAB PO SCH (08:33)
[2017-12-16] MEDS: PANTOprazole SOD 40 MG TAB PO SCH (08:33)
[2017-12-16] MEDS: ENOXAPARIN 40 MG/0.4 ML SYR SC SCH (08:34)
--- NOTE | 2017-12-16 11:26 | EEG Procedure Note ---
EEG Procedure Note Date of Service Dec 16, 2017. Start / End Times Start Time: 1000 End Time: [address] Coker History 52 year old with recent syncopal episode and seizure activity Home Medication List Scheduled Allopurinol (Zyloprim), 300 MG PO QAM Citalopram Hydrobromide (Citalopram Hydrobromide), 10 MG PO DAILY Ergocalciferol (Vitamin D 82600 Unit), 1 CAP PO WK Home O2 Therapy (Oxygen), 2 LITERS NA PRN Levothyroxine Sodium (Levothyroxine Sodium), 100 MCG PO DAILY Omeprazole (Prilosec), 20 MG PO DAILYBB Umeclidinium [place] (Incruse Ellipta), 1 DOSE INH QAM Scheduled PRN Acetaminophen (Tylenol), 1,000 MG PO Q6 PRN for Headache or Pain Ipratropium-Albuterol (Duoneb), 1 TREATMENT INH BID PRN for SOB/Wheezing Inpatient Medication List Current Inpatient Medications Medications (Trade) Dose Ordered Sig/Francesca Route Start Time Stop Time Status Last Admin Dose Admin Enoxaparin Sodium (Lovenox Inj) 40 mg DAILY SC 12/16/17 09:00 01/15/18 08:59 Acetaminophen (Tylenol Tab) 650 mg Q4H PRN PO 12/15/17 18:00 01/14/18 17:59 Ondansetron HCl (Zofran Inj) 4 mg Q6H PRN IV 12/15/17 18:00 01/14/18 17:59 Polyethylene (Miralax Powder Packet) 17 gm DAILY PRN PO 12/15/17 18:00 01/14/18 17:59 Allopurinol (Zyloprim Tab) 300 mg QAM PO 12/16/17 09:00 01/15/18 08:59 12/16/17 08:33 300 MG Ergocalciferol (Vitamin D Cap) 50,000 interunit Mo@0900 PO 12/18/17 09:00 01/17/18 08:59 Albuterol/ Ipratropium (Duoneb) 3 ml BID PRN INH 12/15/17 18:30 01/14/18 18:29 Levothyroxine Sodium (Synthroid Tab) 100 mcg DAILYBB PO 12/16/17 06:30 5/14/18 06:59 12/16/17 06:10 100 MCG Miscellaneous Information (Order Awaiting Action) 1 ea QS N/A 12/16/17 00:00 01/15/18 00:00 Citalopram Hydrobromide (celeXA TAB) 10 mg QAM PO 12/16/17 09:00 01/15/18 08:59 12/16/17 08:33 10 MG Pantoprazole Sodium (Protonix Tab) 40 mg QAM PO 12/16/17 09:00 01/15/18 08:59 12/16/17 08:33 40 MG Aspirin (Ecotrin Tab) 81 mg QAM PO 12/16/17 09:00 01/15/18 08:59 12/16/17 08:33 81 MG Description This is a 21 electrode EEG with a single channel dedicated to limited EKG. The electrodes were placed in accordance with the International 10-20 system. Interpretation The predominant waking background activity consists of an irregular 10 Hz activity seen over the posterior head regions bilaterally, spreading anteriorly. This activity attenuates with eye opening and other alerting procedures. A significant amount of muscle artifact, and some movement artifact contaminated the recording, hindering interpretation from time to time but not to any significant degree overall. Photic stimulation produced some driving response at some mid flash frequencies, but no abnormal responses were seen. Hyperventilation was performed for three minutes and produced no abnormalities either. Drowsiness was noted from time to time without activation and deeper stages of sleep were not seen. No focal abnormalities or potentially epileptogenic discharges were noted throughout the recording. This study was normal during wakefulness and brief periods of drowsiness. Clinical Correlation The absence of potentially epileptogenic activity does not preclude a seizure disorder since interictally EEG's can be normal. Clinical correlation is required.
--- NOTE | 2017-12-16 13:11 | NEUROLOGY CONSULTATION ---
DATE OF CONSULTATION: 12/16/2017 REASON FOR CONSULTATION: Syncope. HISTORY OF PRESENT ILLNESS: The patient is a 52-year-old male with COPD, sarcoidosis, gout, hypothyroidism, presented to the Emergency Room via his 's transportation. He has been in his usual state of health with a chronic cough. He coughed, was mildly dysarthric briefly, fell forward. She attempted to lift him up and he stiffened up and jerk for less than a minute. He was able to get up and say, "I am okay." He was mildly restless, but not disoriented. He indicates he "bit his tongue" and that the sides of his tongue felt numb, but were not bleeding. There was no incontinence of urine and he was not confused thereafter. He told his not to call 911. The patient chronically has had cough with lightheadedness and tingling in the arms. He has never lost consciousness previously. He has not otherwise been recently ill. About a month ago, he received a Z-Shailesh for an upper respiratory tract infection. There was no chest pain, palpitations or shortness of breath. There were no focal neurologic complaints. Recently, he had a large amount of stool per rectum, which has resolved and right upper quadrant pain for which he was seen in the Emergency Room. No history of syncope, seizure. PAST MEDICAL HISTORY: As above including reflux, gout, hypothyroidism, kidney stone, nocturnal hypoxia, wearing O2, sleep apnea, pulmonary sarcoidosis, status post VATS. SURGICAL HISTORY: Vasectomy. FAMILY HISTORY: Mother had seizures in her 50s. SOCIAL HISTORY: Nonsmoker, nondrinker. He is employed. ALLERGIES: None. MEDICATIONS: On admission, Zyloprim; Celexa, which he takes inconsistently; ergocalciferol; O2; levothyroxine; Prilosec; Ellipta p.r.n.; DuoNeb and Tylenol. LABORATORY: White count, H and H, platelet, PT unremarkable. Chemistry profile normal with the exception of a TSH of 6.6. Urinalysis negative. Toxicology negative. MRI brain normal. No significant evidence of a Chiari malformation. MRA of head and neck normal. EEG normal. Electrocardiogram: Normal sinus rhythm, left axis deviation. PHYSICAL EXAMINATION: VITAL SIGNS: 36.6, 64, 18. No significant orthostatic changes in blood pressure and pulse. GENERAL: The patient is awake and alert. Barrel chested. Centrally obese. HEENT: Normocephalic, atraumatic. I do not appreciate evidence of any tongue biting. No carotid bruits. HEART: No heart murmurs. Heart has regular rate and rhythm. LUNGS: Clear. NEUROLOGIC: Pupils equal, round and reactive to light. Optic nerves unremarkable. Normal saravia, motility, facial symmetry. Tongue is midline. Motor 5/5, no drift. Normal bulk and tone. Reflexes symmetric and nonpathologic. Toes downgoing. Iyykup-[id number] and muys-vl-[id number] are normal. IMPRESSION: Syncope with stiffening and jerks, suspect cough syncope, as the patient has had recurrent events of cough, lightheadedness and tingling in his extremities. PLAN: I would recommend an MRI of the cervical spine further to confirm there is not a significant Chiari malformation, rule out other etiologies for tingling in the arms such as cervical myelopathy. EEG not revealing, we would recommend cardiovascular workup for syncope. If the aforementioned is unremarkable, the patient will likely need more aggressive control of his pulmonary symptoms and coughing. We will follow with you. PARAMJIT
--- NOTE | 2017-12-16 14:08 | DIAGNOSTIC IMAGING REPORT ---
MRI CERVICAL WITHOUT CONTRAST CLINICAL HISTORY: Hand paresthesias. 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 Possible cord compression. TECHNIQUE: Sagittal and axial T1, T2 and STIR images were obtained. COMPARISON STUDY: No previous studies for comparison. The study is moderately compromised due to motion artifact. There are no suspicious areas of marrow replacement. No intrinsic cervical cord lesions are visualized. There is no evidence of a Chiari malformation. C2-3: There is no evidence of disc bulge or focal herniation. There is no spinal or foraminal stenosis. C3-4: There is no evidence of disc bulge or focal herniation. There is no spinal or foraminal stenosis. C4-5: There are no disc bulges or focal herniations. There is no spinal or foraminal stenosis. C5-6 :There is a circumferential disc bulge. There is no significant spinal or foraminal stenosis C6-7: There is a central disc protrusion which is minimally asymmetric to the left. There is effacement of the anterior thecal sac. There is no significant foraminal narrowing C7-T1: There is no evidence of disc bulge or focal herniation. There is no evidence of spinal or foraminal stenosis. IMPRESSION: 1. Examination mildly compromised due to motion artifact 2. No evidence of a Chiari malformation 3. No cord lesions identified 4. Central and slightly asymmetric to the left disc protrusion at the C6-C7 level with mild effacement of the anterior thecal sac. No significant foraminal stenosis. Electronically signed by: Jordy Bui M.D. 12/16/2017 2:06 PM Dictated Date/Time: 12/16/2017 1:34 PM
--- NOTE | 2017-12-16 14:56 | ECHOCARDIOGRAM REPORT ---
*NOTICE TO RECEIVING [facility] This information is strictly Confidential and protected under [place] law. [place] law prohibits you from making any further disclosure of this information unless further disclosure is expressly permitted by the written consent of the person to whom it pertains or is authorized by law. A general authorization for the release of medical or other information is not sufficient for this purpose. Hospital accepts no responsibility if the information is made available to any other person, INCLUDING THE PATIENT. Interpretation Summary * Name: TASHA ADAMSON Study Date: 12/16/2017 11:21 AM BP: 130/79 mmHg * Patient Location: [facility] HR: 61 * : 1965 (M/d/yyyy) Gender: Male Height: 62 in * Age: 52 yrs Ethnicity: CA Weight: 242 lb * Ordering Physician: Noemy Coker * Performed By: Lila Cabrera RDCS * * Reason For Study: SYNCOPE * BSA: 2.1 m2 * -- Conclusions -- * The study is technically limited but adequate for the referral indication. * An ultrasound enhancement agent was administered to improved delineation of the endocardial border with good technical results. * The left ventricular wall motion is normal. * Ejection Fraction = 60-65%. * Grade I diastolic dysfunction, (abnormal relaxation pattern). * The right ventricle is normal in size and function. Procedure Details * A complete two-dimensional transthoracic echocardiogram was performed (2D, M-mode, Doppler and color flow Doppler). * The study was technically difficult. * There were technical limitations due to patient'sbody habitus * A contrast injection of Definity was performed to improve assessment of LV function. * Contrast was injected into an intravenous site in the left arm. * One vial of Definity ultrasound contrast was diluted in normal saline to a total volume of 10 ml. A total of '3' ml of solution was administered during imaging. * Lot # [id number] of Definity utilized for procedure. * Expiration date 12/21. Left Ventricle * The left ventricle is normal in size. * There is normal left ventricular wall thickness. * Left ventricular systolic function is normal. * Ejection Fraction = 60-65%. * The left ventricular wall motion is normal. Right Ventricle * The right ventricle is normal in size and function. * The right ventricular systolic function is normal as assessed by tricuspid annular plane systolic excursion (TAPSE) (normal >1.5 cm). Atria * The left atrial size is normal. * Right atrial size is normal. * There is no evidence of atrial septal defect, but resolution does not allow assessment for a patent foramen ovale. Mitral Valve * The mitral valve is normal. * There is no mitral valve stenosis. * Significant mitral regurgitation is absent. Tricuspid Valve * The tricuspid valve is normal. * There is no tricuspid stenosis. * Significant tricuspid regurgitation is absent. Aortic Valve * The aortic valve is trileaflet. * Aortic stenosis is absent. * There is no significant aortic regurgitation. Pulmonic Valve * The pulmonary valve is not well seen, but the Doppler examination is normal without significant regurgitation or stenosis. Great Vessels * The aortic root and proximal ascending aorta are normal sized. Pericardium/Pleural * There is no pericardial effusion. Great Vessels * Normal inferior vena cava diameter and respiratory variation suggests normal central venous pressure. Left Ventricular Diastolic Function * Grade I diastolic dysfunction, (abnormal relaxation pattern). MMode 2D Measurements and Calculations IVSd 1.1 cm IVSs 1.7 cm LVIDd 4.7 cm LVIDs 2.8 cm LVPWd 1.0 cm LVPWs 1.6 cm IVS/LVPW 1.0 FS 39.8 % EDV(Teich) 100.9 ml ESV(Teich) 29.9 ml EF(Teich) 70.4 % EDV(cubed) 101.9 ml ESV(cubed) 22.2 ml EF(cubed) 78.2 % % IVS thick 62.0 % % LVPW thick 50.2 % LV mass(C)d 173.5 grams LV mass(C)dI 83.7 grams/m\S\2 LV mass(C)s 169.4 grams LV mass(C)sI 81.7 grams/m\S\2 SV(Teich) 71.0 ml SI(Teich) 34.3 ml/m\S\2 SV(cubed) 79.7 ml SI(cubed) 38.4 ml/m\S\2 ACS 2.1 cm asc Aorta Diam 3.2 cm LVOT diam 1.9 cm LVOT area 2.9 cm\S\2 LVAd ap4 24.2 cm\S\2 LVLd ap4 7.5 cm EDV(MOD-sp4) 65.7 ml EDV(sp4-el) 66.7 ml LVAs ap4 12.9 cm\S\2 LVLs ap4 6.6 cm ESV(MOD-sp4) 21.8 ml ESV(sp4-el) 21.3 ml EF(MOD-sp4) 66.8 % EF(sp4-el) 68.0 % LVAd ap2 28.6 cm\S\2 LVLd ap2 8.2 cm EDV(MOD-sp2) 80.5 ml EDV(sp2-el) 84.7 ml LVAs ap2 14.9 cm\S\2 LVLs ap2 6.9 cm ESV(MOD-sp2) 27.2 ml ESV(sp2-el) 27.2 ml EF(MOD-sp2) 66.2 % EF(sp2-el) 68.0 % LVLd %diff 8.6 % EDV(MOD-bp) 76.5 ml LVLs %diff 4.1 % ESV(MOD-bp) 24.3 ml EF(MOD-bp) 68.2 % SV(MOD-sp4) 43.9 ml SI(MOD-sp4) 21.2 ml/m\S\2 SV(MOD-sp2) 53.4 ml SI(MOD-sp2) 25.7 ml/m\S\2 SV(MOD-bp) 52.2 ml SI(MOD-bp) 25.2 ml/m\S\2 SV(sp4-el) 45.3 ml SI(sp4-el) 21.9 ml/m\S\2 SV(sp2-el) 57.6 ml SI(sp2-el) 27.8 ml/m\S\2 Doppler Measurements and Calculations MV E max candis 70.7 cm/sec MV A max candis 67.8 cm/sec MV E/A 1.0 MV dec time 0.25 sec Ao V2 max 110.4 cm/sec Ao max PG 4.9 mmHg Ao max PG (full) 2.4 mmHg JOSE(V,A) 2.1 cm\S\2 JOSE(V,D) 2.1 cm\S\2 LV V1 max PG 2.5 mmHg LV V1 max 79.5 cm/sec PA V2 max 56.6 cm/sec PA max PG 1.3 mmHg
--- NOTE | 2017-12-16 15:47 | Cardiology Consultation ---
Cardiology Consultation Date of Consultation: Dec 16, 2017 History of Present Illness Billy Alves is a 52 year old male seen in cardiology consultation per the request of Dr. Coker for the evaluation of chest discomfort and syncope. The patient states that he was in his normal state of health yesterday at approximately 11:00 AM having conversation. He had a brief episode of cough, and then had difficulty with speech and a subsequent loss of consciousness. His spouse witnessed the event and there was some movement of his limbs. Ultimately the patient's mental status was poor when he ultimately regained consciousness. He does not remember the event. This is never happened to him before. He has a long-standing history of lung disease that he states is characterized by the diagnosis of emphysema and sarcoidosis. 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 The patient states he follows with Dr. Canales and Caesar Chu of [facility] regularly. He has a history of obstructive sleep apnea but has been intolerant of CPAP. He does wear oxygen at night. He recalls being on prednisone for about a year and a half but has not been on it recently. He notes that he has a history of vigorous coughing episodes that might happen 3 times per week, but he did not have such an episode at the time of his event yesterday. He notes that his respiratory status is at its baseline without recent symptoms of exacerbation. Besides his episode of loss of consciousness, the patient describes a bandlike chest discomfort that is been present on and off again for about a 1 week interval. He denies any chest discomfort at present. He has a past history of chest discomfort and underwent dobutamine stress echocardiogram as an outpatient at our office in 2013 with study that was negative for inducible ischemia. He also underwent a dobutamine stress test at [facility] in 2014 that was negative for inducible ischemia. 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 Family History: Family history is notable for coronary artery disease and stents in both parents Review Of Systems See above for pertinent positives & negatives. A total of 10 systems reviewed and were otherwise negative. Allergies Coded Allergies: No Known Allergies (Unverified , 10/12/16) Medications Reported Home Medications Medications Dose Route/Sig Max Daily Dose Days Date Category Citalopram Hydrobromide 10 Mg Tab 10 Mg PO DAILY 30 12/15/17 Reported Tylenol (Acetaminophen) 500 Mg Tab 1,000 Mg PO Q6 PRN 12/15/17 Reported Duoneb (Ipratropium-Albuterol) 3 Ml Nebu 1 Treatment INH BID PRN 12/15/17 Reported Vitamin D 40202 Unit (Ergocalciferol) 50,000 Unit Cap 1 Cap PO WK 12/15/17 Reported Levothyroxine Sodium 100 Mcg Tab 100 Mcg PO DAILY 12/15/17 Reported Prilosec (Omeprazole) 20 Mg Capcr 20 Mg PO DAILYBB 10/12/16 Reported Oxygen Gas 2 Liters NA PRN 10/05/16 Reported Incruse Ellipta (Umeclidinium Jewett) 62.5 Mcg/Inh Inh 1 Dose INH QAM 10/05/16 Reported Zyloprim (Allopurinol) 300 Mg Tab 300 Mg PO QAM 10/05/16 Reported Physical Exam Vital Signs (Last 8hrs): Last 8 Hrs Date Time Temp Pulse Resp B/P (MAP) Pulse Ox O2 Delivery O2 Flow Rate FiO2 12/16/17 12:00 Room Air 12/16/17 08:00 Room Air General Appearance: Alert and Oriented x3. NAD. Head: Normocephalic Atraumatic. Eyes: PERRLA, EOMI, conjunctiva and sclera clear Neck: Supple. No carotid bruits noted. No JVD. No HJD. Respiratory: Breath sounds clear to auscultation bilaterally. No w/r/r. Cardiovascular: Reg rate and rhythm. S1 and S2 noted. No murmurs, rubs, gallops. PMI non displace. Abdomen: Normal bowel sounds, soft nontender. no abdominal bruits. Extremities: No edema, no clubbing or cyanosis. distal pulses 2/4 bilaterally. Neuro: No focal deficits. Psychiatric: Normal affect. Data Last Resulted 12/16/17 01:48 Last Resulted 12/16/17 01:48 Past 24 Hours Test 12/15/17 22:24 12/16/17 01:48 Range/Units Troponin I < 0.015 < 0.015 0-0.045 ng/ml EKG performed 12/15/17 and reviewed independently: Normal sinus rhythm at 69 bpm , and age-indeterminate inferior infarction pattern cannot be excluded. Findings of incomplete right bundle branch block are present in lead V1. Compared to prior tracing dated 04/07/15 there is been no significant interval change Assessment & Plan Impression: 52-year-old male 1. Syncope 2. Chest discomfort, somewhat atypical for angina 3. Family history of ischemic heart disease 4. History of emphysema and sarcoidosis Recommendations: This is the patient's history I initially entertained the diagnosis of cough related syncope or a generalized hypoxia event due to his underlying lung disease. On further discussion however the patient states that he was feeling well moments before the episode and his spouse stated that he coughed a little bit but it was not 1 of his typical very vigorous coughing episodes. He has never had a passing out spell in the past. Telemetry thus far today reveals normal sinus rhythm without any significant tachycardia or bradycardia. No pauses or high-grade AV block have been observed. His echocardiogram reveals stable findings with normal biventricular wall motion and systolic function. I do not have a lot of the details of his past workup and diagnosis of sarcoidosis available. This disease however can have cardiac manifestations including arrhythmias and typically patients require annual screening Holter monitors at minimum to screen for the development of conduction system disease. The patient has significant episode where he lost consciousness and does not recollect the events yesterday. So far his neurology workup has been negative including neurology imaging and negative EEG. I recommend that we continue to monitor him on telemetry overnight tonight and I am going to arrange a 2 week Zio monitoring tech as an outpatient. If this is unrevealing, an implantable loop recorder may be indicated for further workup. Regarding his chest discomfort, I recommend proceeding with stress testing as his cardiac enzymes are negative and his EKG is unchanged. He will require a pharmacologic stress due to his inability to maintain adequate pace on a treadmill. I would recommend proceeding with a dobutamine stress echocardiogram either during this admission or as an outpatient depending upon how his hospitalization develops. Further considerations include at least annual cardiology follow-up to screen for the cardiac manifestations of sarcoidosis. I would also consider an outpatient cardiac MRI to evaluate for cardiac manifestations of sarcoidosis in the form of myocardial inflammation.
[2017-12-16] MEDS: ACETAMINOPHEN 325 MG TAB PO PRN ×2 (15:49→23:30)
[2017-12-16 16:17] VITALS: BP_SYST 121; BP_SYST 126; BP_SYST 127; BP_DIAS 75; BP_DIAS 81; PULSE 65; TEMP 36.7; O2SAT 95
--- NOTE | 2017-12-16 18:56 | Progress Note ---
Medicine Progress Note Date & Time of Visit: Dec 16, 2017 at 10:50 . Subjective CC: Follow-up visit for syncope, possible seizure. HPI: Admitted yesterday after witnessed syncopal episode with seizure-like activity. Episode was associated with coughing. Feels well today. No headache, syncope, near syncope, chest pain, palpitations. ROS: General- no fever, no chills Resp- chronic cough and dyspnea, unchanged Cardiac- as noted above in HPI GI- no nausea, no vomiting, no diarrhea, - . Objective Last 8 Hrs Date Time Temp Pulse Resp B/P (MAP) Pulse Ox O2 Delivery O2 Flow Rate FiO2 12/16/17 16:17 36.7 65 18 127/81 (96) 95 Room Air 126/75 (92) 121/81 (94) 12/16/17 16:00 Room Air 12/16/17 12:00 Room Air Physical Exam: General-lying in bed, no distress Lungs- clear to auscultation; no respiratory distress Cardiovascular- RRR; no murmur or gallop appreciated; no JVD; no pretibial edema Abdomen- + bowel sounds, soft, nontender Extremities- no cyanosis; no calf tenderness Neuro- alert, oriented; PERRL, EOMI motor strength grossly intact Skin- warm & dry . Laboratory Results: Last 24 Hours Test 12/15/17 22:24 12/16/17 01:48 12/16/17 06:15 Troponin I < 0.015 ng/ml < 0.015 ng/ml White Blood Count 6.79 K/uL Red Blood Count 4.83 M/uL Hemoglobin 14.7 g/dL Hematocrit 43.8 % Mean Corpuscular Volume 90.7 fL Mean Corpuscular Hemoglobin 30.4 pg Mean Corpuscular Hemoglobin Concent 33.6 g/dl RDW Standard Deviation 41.6 fL RDW Coefficient of Variation 12.5 % Platelet Count 220 K/uL Mean Platelet Volume 10.0 fL Sodium Level 137 mmol/L Potassium Level 3.8 mmol/L Chloride Level 107 mmol/L Carbon Dioxide Level 26 mmol/L Anion Gap 4.0 mmol/L Blood Urea Nitrogen 18 mg/dl Creatinine 1.08 mg/dl Est Creatinine Clear Calc Drug Dose 86.9 ml/min Estimated GFR () 91.0 Estimated GFR (Non- 78.5 BUN/Creatinine Ratio 17.0 Random Glucose 93 mg/dl Calcium Level 8.5 mg/dl Urine Color YELLOW Urine Appearance CLEAR Urine pH 5.0 Urine Specific W[place]rop 1.027 Urine Protein NEG Urine Glucose (UA) NEG Urine Ketones NEG Urine Occult Blood NEG Urine Nitrite NEG Urine Bilirubin NEG Urine Urobilinogen NEG Urine Leukocyte Esterase NEG Urine Opiates Screen NEG Urine Methadone, Qualitative NEG Urine Barbiturates NEG Urine Phencyclidine (PCP) Level NEG Ur Amphetamine/Methamphetamine NEG MDMA (Ecstasy) Screen NEG Urine Benzodiazepines Screen NEG Urine Cocaine Metabolite NEG Urine Marijuana (THC) NEG Assessment & Plan SYNCOPE Neuroimaging per CT and MRI negative for acute vascular event. ?? cough syncope. Continue cardiac monitoring. EEG negative. CHEST PAIN Troponin negative 3. Admission EKG showed possible age-indeterminate inferior infarct, no acute ST or T-wave abnormalities. Cardiology consulted. CARDIOMEGALY Cardiomegaly noted on chest x-ray. Check echocardiogram. COPD / SARCOIDOSIS Pulmonary status appears to be stable. We will need outpatient follow-up with Pulmonary Medicine. FATTY LIVER Noted on abdominal ultrasound. Not diabetic. No current alcohol consumption. Check lipid profile. MORBID OBESITY Weight 110 kg, BMI 44. AHA diet. VTE PROPHYLAXIS SQ enoxaparin. Ambulate. DISPOSITION Expected discharge to home. . Current Inpatient Medications: Current Inpatient Medications Medications (Trade) Dose Ordered Sig/Francesca Route Start Time Stop Time Status Last Admin Dose Admin Enoxaparin Sodium (Lovenox Inj) 40 mg DAILY SC 12/16/17 09:00 01/15/18 08:59 Acetaminophen (Tylenol Tab) 650 mg Q4H PRN PO 12/15/17 18:00 01/14/18 17:59 12/16/17 15:49 650 MG Ondansetron HCl (Zofran Inj) 4 mg Q6H PRN IV 12/15/17 18:00 01/14/18 17:59 Polyethylene (Miralax Powder Packet) 17 gm DAILY PRN PO 12/15/17 18:00 01/14/18 17:59 Allopurinol (Zyloprim Tab) 300 mg QAM PO 12/16/17 09:00 01/15/18 08:59 12/16/17 08:33 300 MG Ergocalciferol (Vitamin D Cap) 50,000 interunit Mo@0900 PO 12/18/17 09:00 01/17/18 08:59 Albuterol/ Ipratropium (Duoneb) 3 ml BID PRN INH 12/15/17 18:30 01/14/18 18:29 Levothyroxine Sodium (Synthroid Tab) 100 mcg DAILYBB PO 12/16/17 06:30 01/15/18 06:59 12/16/17 06:10 100 MCG Miscellaneous Information (Order Awaiting Action) 1 ea QS N/A 12/16/17 00:00 01/15/18 00:00 Citalopram Hydrobromide (celeXA TAB) 10 mg QAM PO 12/16/17 09:00 01/15/18 08:59 12/16/17 08:33 10 MG Pantoprazole Sodium (Protonix Tab) 40 mg QAM PO 12/16/17 09:00 01/15/18 08:59 12/16/17 08:33 40 MG Aspirin (Ecotrin Tab) 81 mg QAM PO 12/16/17 09:00 01/15/18 08:59 12/16/17 08:33 81 MG
[2017-12-16 20:00] VITALS: BP_SYST 101; BP_SYST 126; BP_DIAS 58; BP_DIAS 80; PULSE 58; PULSE 67; TEMP 36.5; O2SAT 94; O2SAT 96
[2017-12-17 00:15] VITALS: BP 137/85; PULSE 61; TEMP 36.4; O2SAT 93
[2017-12-17 04:00] VITALS: BP 125/78; PULSE 67; TEMP 36.6; O2SAT 94
[2017-12-17] MEDS: ACETAMINOPHEN 325 MG TAB PO PRN ×2 (05:43→15:57)
[2017-12-17] MEDS: LEVOTHYROXINE 100 MCG TAB PO SCH (05:44)
[2017-12-17 07:21] VITALS: BP_SYST 131; BP_SYST 134; BP_SYST 147; BP_DIAS 85; BP_DIAS 89; BP_DIAS 93; PULSE 60; TEMP 36.3; O2SAT 95
[2017-12-17] MEDS: PANTOprazole SOD 40 MG TAB PO SCH (08:38)
[2017-12-17] MEDS: CITALOPRAM 20 MG TAB PO SCH (08:38)
[2017-12-17] MEDS: ENOXAPARIN 40 MG/0.4 ML SYR SC SCH (08:39)
[2017-12-17] MEDS: ASPIRIN 81 MG ECTAB PO SCH (08:39)
[2017-12-17] MEDS: ALLOPURINOL 300 MG TAB PO SCH (08:39)
[2017-12-17 12:23] VITALS: BP 154/78; PULSE 67; TEMP 36.5; O2SAT 95
--- NOTE | 2017-12-17 12:26 | PROGRESS NOTE ---
DATE: 12/17/2017 HISTORY OF PRESENT ILLNESS: Seen Mr. Alves in followup of a syncopal episode. MRI of the cervical spine showing no evidence of a Chiari syrinx. There is a modest size disk at C6-7 which presses the anterior aspect of the thecal sac, but does not cause any cord compression, i.e. there is nothing that would explain the patient's symptoms. The patient has had some brief episodes with cough, mild lightheadedness with coughing as would be atypical. VITAL SIGNS: 36.3, 60, 18, 131/85 supine, 134/89 sitting, 147/93 standing. IMPRESSION: Cough, syncope. Defer to hospitalist service whether any further cardiovascular testing needs to be performed. 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 The patient does not need to see me in followup. PARAMJIT
--- NOTE | 2017-12-17 13:27 | Cardiology Follow-Up ---
Subjective General Date of Service: Dec 17, 2017. Chief Complaint: Follow-up chest discomfort, syncope Pt evaluation today including: conversation w/ patient, conversation w/ family , physical exam History of Present Illness The patient is a 52 year old male seen in follow-up. He notes mild residual chest discomfort. He continues to have a mild cough. No additional dizziness. Telemetry reveals stable sinus rhythm. Allergies Coded Allergies: No Known Allergies (Unverified , 10/12/16) Social History Smoking Status: Never Smoker Hx Tobacco Use In Past Year?: Yes Hx Alcohol Use - Type And Amou: No Hx Substance Use - Type And Am: No Problem List Medical Problems: (1) Chest pain Status: Acute (2) Hypothyroidism Status: Chronic (3) Syncope Status: Acute Physical Exam Vital Signs Last Vital Signs Documentation Date Time Temp Pulse Resp B/P (MAP) Pulse Ox O2 Delivery O2 Flow Rate FiO2 12/17/17 12:23 36.5 67 18 154/78 (103) 95 Room Air Physical Exam Constitutional: Level of Distress: NAD Neck: supple Lungs: Auscultation: no wheezing, no rales/crackles Cardiovascular: Heart Auscultation: RRR, no murmurs, no rubs Extremities: no cyanosis, no edema Neurologic: Gait & Station: pertinent finding (No focal deficits) Assessment and Plan Assessment and Plan Impression: 52-year-old male 1. Syncope 2. Chest discomfort, somewhat atypical for angina 3. Family history of ischemic heart disease 4. History of emphysema and sarcoidosis Plan: Patient still has ongoing nagging very low intensity chest discomfort that occurs at rest. My impression at this is most likely chest wall pain related to his chronic cough but he does have cardiac risk factors. His cholesterol fortunately is excellent without medication. Will proceed with dobutamine stress echocardiogram tomorrow. I have already requested a 2 week traffic monitor specialist to be performed as an outpatient and placed the order in his outpatient [facility] chart. Laboratory Results Last 24 Hours Test 12/17/17 06:46 Triglycerides Level 146 mg/dl Cholesterol Level 175 mg/dl HDL Cholesterol 48 mg/dl LDL Cholesterol, Calculated 98 mg/dl VLDL Cholesterol, Calculated 29 mg/dl Cholesterol/HDL Ratio 3.6
[2017-12-17 16:12] VITALS: BP_SYST 123; BP_SYST 125; BP_SYST 128; BP_DIAS 71; BP_DIAS 79; BP_DIAS 80; PULSE 63; TEMP 36.4; O2SAT 94
[2017-12-17 19:13] VITALS: BP 130/82; PULSE 75; TEMP 36.5; O2SAT 95
--- NOTE | 2017-12-17 19:15 | Progress Note ---
Medicine Progress Note Date & Time of Visit: Dec 17, 2017 . Subjective Experiencing a headache. Otherwise, feels well. No syncope, presyncope, seizure activity. No chest pain. Respiratory status stable with mild cough. No nausea, vomiting, diarrhea. . Objective Last 8 Hrs Date Time Temp Pulse Resp B/P (MAP) Pulse Ox O2 Delivery O2 Flow Rate FiO2 12/17/17 19:13 36.5 75 18 130/82 (98) 95 Room Air 12/17/17 16:12 36.4 63 18 123/71 (88) 94 Room Air 125/79 (94) 128/80 (96) 12/17/17 16:00 Room Air 12/17/17 12:23 36.5 67 18 154/78 (103) 95 Room Air 12/17/17 12:07 Room Air Physical Exam: General- sitting in chair at bedside, no distress Lungs- clear to auscultation; no respiratory distress Cardiovascular- RRR; no murmur or gallop appreciated; no JVD; no pretibial edema Abdomen- + bowel sounds, soft, nontender Extremities- no cyanosis; no calf tenderness Neuro- alert, oriented; PERRL, EOMI motor strength grossly intact Skin- warm & dry . Laboratory Results: Last 24 Hours Test 12/17/17 06:46 Triglycerides Level 146 mg/dl Cholesterol Level 175 mg/dl HDL Cholesterol 48 mg/dl LDL Cholesterol, Calculated 98 mg/dl VLDL Cholesterol, Calculated 29 mg/dl Cholesterol/HDL Ratio 3.6 Assessment & Plan SYNCOPE Neuroimaging per CT and MRI negative for acute vascular event. ?? cough syncope. Continue cardiac monitoring. EEG negative. Outpatient cardiac event monitor recommended. CHEST PAIN Troponin negative 3. Admission EKG showed possible age-indeterminate inferior infarct, no acute ST or T-wave abnormalities. Cardiology consulted. Stress test recommended prior to discharge. CARDIOMEGALY Cardiomegaly noted on chest x-ray. Echocardiogram demonstrated normal left ventricular wall thickness, normal size of left and right ventricles. COPD / SARCOIDOSIS Pulmonary status appears to be stable. Check 2 step pulse oximetry prior to discharge. We will need outpatient follow-up with Pulmonary Medicine. FATTY LIVER Noted on abdominal ultrasound. Not diabetic. No current alcohol consumption. Lipid profile unremarkable. MORBID OBESITY Weight 110 kg, BMI 44. AHA diet. VTE PROPHYLAXIS SQ enoxaparin. Ambulate. DISPOSITION Expected discharge to home. . Current Inpatient Medications: Current Inpatient Medications Medications (Trade) Dose Ordered Sig/Francesca Route Start Time Stop Time Status Last Admin Dose Admin Enoxaparin Sodium (Lovenox Inj) 40 mg DAILY SC 12/16/17 09:00 01/15/18 08:59 Acetaminophen (Tylenol Tab) 650 mg Q4H PRN PO 12/15/17 18:00 01/14/18 17:59 12/17/17 15:57 650 MG Ondansetron HCl (Zofran Inj) 4 mg Q6H PRN IV 12/15/17 18:00 01/14/18 17:59 Polyethylene (Miralax Powder Packet) 17 gm DAILY PRN PO 12/15/17 18:00 01/14/18 17:59 Allopurinol (Zyloprim Tab) 300 mg QAM PO 12/16/17 09:00 01/15/18 08:59 12/17/17 08:39 300 MG Ergocalciferol (Vitamin D Cap) 50,000 interunit Mo@0900 PO 12/18/17 09:00 01/17/18 08:59 Albuterol/ Ipratropium (Duoneb) 3 ml BID PRN INH 12/15/17 18:30 01/14/18 18:29 Levothyroxine Sodium (Synthroid Tab) 100 mcg DAILYBB PO 12/16/17 06:30 01/15/18 06:59 12/17/17 05:44 100 MCG Miscellaneous Information (Order Awaiting Action) 1 ea QS N/A 12/16/17 00:00 01/15/18 00:00 Citalopram Hydrobromide (celeXA TAB) 10 mg QAM PO 12/16/17 09:00 01/15/18 08:59 12/17/17 08:38 10 MG Pantoprazole Sodium (Protonix Tab) 40 mg QAM PO 12/16/17 09:00 01/15/18 08:59 12/17/17 08:38 40 MG Aspirin (Ecotrin Tab) 81 mg QAM PO 12/16/17 09:00 01/15/18 08:59 12/17/17 08:39 81 MG
[2017-12-18 00:30] VITALS: BP 139/86; PULSE 74; TEMP 36.7; O2SAT 93
[2017-12-18] MEDS ORDERED: COUGH DROP (SUGAR FREE) LOZ 24 LOZ/1 BOX LOZ ONE (00:36)
[2017-12-18] MEDS ORDERED: COUGH DROP (SUGAR FREE) LOZ 24 LOZ/1 BOX LOZ PRN (00:45)
[2017-12-18 04:00] VITALS: O2SAT 93
[2017-12-18] MEDS: LEVOTHYROXINE 100 MCG TAB PO SCH (04:33)
[2017-12-18] MEDS: ACETAMINOPHEN 325 MG TAB PO PRN (04:34)
[2017-12-18 05:10] VITALS: BP 145/81; PULSE 55; TEMP 36.8; O2SAT 95
[2017-12-18 05:53] LABS: HEMATOCRIT 43.8 % (42-52); MEAN CELL VOLUME 91.6 fL (80-100); MEAN CORPUSCULAR HEMOGLOBIN 31.4 pg (25-34); MEAN CORPUSCULAR HGB CONC 34.2 g/dl (32-36); MEAN PLATELET VOLUME 9.9 fL (7.4-10.4); PLATELET COUNT 221 K/uL (130-400); RED CELL DISTRIBUTION WIDTH CV 12.6 % (11.5-14.5)
[2017-12-18 06:21] LABS: CREATININE 1.32 mg/dl (0.60-1.40)
[2017-12-18] MEDS: ALLOPURINOL 300 MG TAB PO SCH (08:11)
[2017-12-18] MEDS: PANTOprazole SOD 40 MG TAB PO SCH (08:12)
[2017-12-18] MEDS: ASPIRIN 81 MG ECTAB PO SCH (08:12)
[2017-12-18] MEDS: CITALOPRAM 20 MG TAB PO SCH (08:12)
[2017-12-18] MEDS: ENOXAPARIN 40 MG/0.4 ML SYR SC SCH (08:14)
[2017-12-18 08:35] VITALS: BP 111/74; PULSE 65; TEMP 36.4; O2SAT 95
[2017-12-18] MEDS ORDERED: ERGOCALCIFEROL 50,000 INTER.UNIT CAP PO SCH (09:00)
[2017-12-18] MEDS ORDERED: METOPROLOL TARTRATE 1 MG/ML VIAL ONE (09:33)
[2017-12-18] MEDS ORDERED: ATROPINE SULFATE 0.1 MG/ML 5ML SYR ONE (09:33)
[2017-12-18] MEDS ORDERED: DOBUTamine HCL 12.5 MG/ML 20 ML VIAL ONE (09:33)
--- NOTE | 2017-12-18 10:54 | Cardiology Procedure Brief Nt ---
Preliminary Cardiology Note Procedure Date Dec 18, 2017. Pre-Procedure Diagnosis chest pain Post-Procedure Diagnosis dobutamine stress negative for ischemia Procedure(s) Performed dobutamine stress echocardiogram Grab Driver Brook Chand DO Field Insurance Sales Manager(s) not applicable Estimated Blood Loss none Preliminary Findings No EKG or echocardiographic evidence of inducible ischemia. Recommendations Presentation consistent with non cardiac chest pain, perhaps chest wall pain related to lung disease , chronic cough. No arrhythmias noted on telemetry. Stable for discharge from cardiac perspective. 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 Specimens none Complication(s) None Disposition 2 N telemetry
[2017-12-18 11:02] VITALS: BP_SYST 122; BP_SYST 124; BP_SYST 177; BP_DIAS 77; BP_DIAS 81; BP_DIAS 89; PULSE 65; PULSE 72; TEMP 36.8; O2SAT 97
--- NOTE | 2017-12-18 14:24 | Progress Note ---
Medicine Progress Note Date & Time of Visit: Dec 18, 2017 at 14:24 . Subjective Doing well. Anxious to go home. Stress test went well-no chest pain. No syncope, near syncope, focal neurologic symptoms. . Objective Last 8 Hrs Date Time Temp Pulse Resp B/P (MAP) Pulse Ox O2 Delivery O2 Flow Rate FiO2 12/18/17 13:09 Room Air 12/18/17 11:02 36.8 65 20 124/89 (101) 97 Room Air 72 177/77 (110) 72 122/81 (95) 12/18/17 08:35 36.4 65 18 111/74 (86) 95 Room Air 12/18/17 07:44 Room Air Physical Exam: General- no distress Lungs- clear to auscultation; no respiratory distress Cardiovascular- RRR; no murmur or gallop appreciated; no JVD; no pretibial edema Abdomen- + bowel sounds, soft, nontender Extremities- no cyanosis; no calf tenderness Neuro- alert, oriented; PERRL, EOMI motor strength grossly intact Skin- warm & dry . Laboratory Results: Last 24 Hours Test 12/18/17 05:18 White Blood Count 6.70 K/uL Red Blood Count 4.78 M/uL Hemoglobin 15.0 g/dL Hematocrit 43.8 % Mean Corpuscular Volume 91.6 fL Mean Corpuscular Hemoglobin 31.4 pg Mean Corpuscular Hemoglobin Concent 34.2 g/dl RDW Standard Deviation 42.0 fL RDW Coefficient of Variation 12.6 % Platelet Count 221 K/uL Mean Platelet Volume 9.9 fL Creatinine 1.32 mg/dl Est Creatinine Clear Calc Drug Dose 71.8 ml/min Estimated GFR () 71.4 Estimated GFR (Non- 61.6 Assessment & Plan SYNCOPE Neuroimaging per CT and MRI negative for acute vascular event. ?? cough syncope. No significant arrhythmias noted on telemetry. EEG negative. Outpatient cardiac event monitor recommended. CHEST PAIN Troponin negative 3. Admission EKG showed possible age-indeterminate inferior infarct, no acute ST or T-wave abnormalities. Cardiology consulted. Rest echocardiogram demonstrated normal left ventricular wall motion and systolic function. Stress echocardiogram did not show any stress-induced ischemia. CARDIOMEGALY Cardiomegaly noted on chest x-ray. Echocardiogram demonstrated normal left ventricular wall thickness, normal size of left and right ventricles. COPD / SARCOIDOSIS Pulmonary status appears to be stable. 2 step pulse oximetry done prior to discharge- O2 sats OK at rest and with exercise on RA. We will need outpatient follow-up with Pulmonary Medicine. FATTY LIVER Noted on abdominal ultrasound. Not diabetic. No current alcohol consumption. Lipid profile unremarkable. MORBID OBESITY Weight 110 kg, BMI 44. AHA diet. VTE PROPHYLAXIS SQ enoxaparin. Ambulate. DISPOSITION Discharge to home. Primary care follow-up with Dr. Dorman. Pulmonary Medicine follow-up with Caesar Chu PA-C. Cardiology follow-up with Dr. Chand. . Current Inpatient Medications: Current Inpatient Medications Medications (Trade) Dose Ordered Sig/Francesca Route Start Time Stop Time Status Last Admin Dose Admin Enoxaparin Sodium (Lovenox Inj) 40 mg DAILY SC 12/16/17 09:00 01/15/18 08:59 12/18/17 08:14 40 MG Acetaminophen (Tylenol Tab) 650 mg Q4H PRN PO 12/15/17 18:00 01/14/18 17:59 12/18/17 04:34 650 MG Ondansetron HCl (Zofran Inj) 4 mg Q6H PRN IV 12/15/17 18:00 01/14/18 17:59 Polyethylene (Miralax Powder Packet) 17 gm DAILY PRN PO 12/15/17 18:00 01/14/18 17:59 Allopurinol (Zyloprim Tab) 300 mg QAM PO 12/16/17 09:00 01/15/18 08:59 12/18/17 08:11 300 MG Ergocalciferol (Vitamin D Cap) 50,000 interunit Mo@0900 PO 12/18/17 09:00 01/17/18 08:59 12/18/17 08:12 50,000 INTERUNIT Albuterol/ Ipratropium (Duoneb) 3 ml BID PRN INH 12/15/17 18:30 01/14/18 18:29 Levothyroxine Sodium (Synthroid Tab) 100 mcg DAILYBB PO 12/16/17 06:30 01/15/18 06:59 12/18/17 04:33 100 MCG Miscellaneous Information (Order Awaiting Action) 1 ea QS N/A 12/16/17 00:00 01/15/18 00:00 Citalopram Hydrobromide (celeXA TAB) 10 mg QAM PO 12/16/17 09:00 01/15/18 08:59 12/18/17 08:12 10 MG Pantoprazole Sodium (Protonix Tab) 40 mg QAM PO 12/16/17 09:00 01/15/18 08:59 12/18/17 08:12 40 MG Aspirin (Ecotrin Tab) 81 mg QAM PO 12/16/17 09:00 01/15/18 08:59 12/18/17 08:12 81 MG Menthol (Nice Terry) 1 terry PRN PRN TERRY 12/18/17 00:45 01/17/18 00:44 12/18/17 04:37 1 TERRY
--- NOTE | 2017-12-18 14:29 | Discharge Instructions ---
Discharge Instructions Date of Service Dec 18, 2017. Admission Reason for Admission: passed out . Discharge Discharge Diagnosis / Problem: passed out Discharge Goals Goal(s): Improve disease control Activity Recommendations Activity Limitations: as noted below Driving or Machine Use: no driving until heart monitor report back and OK . Instructions / Follow-Up Instructions / Follow-Up APPOINTMENTS: PRIMARY CARE Dr. Dorman Please call her office for appointment in 1 week. PULMONARY MEDICINE Caesar Chu PA-C as scheduled. CARDIOLOGY Dr[facility] his office will contact you with appointment OTHER INSTRUCTIONS: Seek medical attention if you have: * temperature above 101 * chest pain or trouble breathing * abdominal pain, nausea, vomiting * diarrhea, dark stools or bloody stools * recurrent episodes of passing out * any unanswered questions or concerns Call 911 if symptoms are severe. Call if you have any questions or problems. My cell # is [phone]. You can also reach a Elder hospitalist on duty at [facility] 24 hours a day by calling [phone]. Please take good care of yourself. Jonny Jacobson . Current Hospital Diet Patient's current hospital diet: Regular Diet Discharge Diet Recommended Diet: AHA Diet (Heart Healthy) Pending Studies Studies pending at discharge: no Laboratory Results Lipid Panel Test 12/17/17 06:46 Range/Units Triglycerides Level 146 0-150 mg/dl Cholesterol Level 175 0-200 mg/dl HDL Cholesterol 48 mg/dl Cholesterol/HDL Ratio 3.6 LDL Cholesterol, Calculated 98 mg/dl Medical Emergencies . Who to Call and When: Medical Emergencies: If at any time you feel your situation is an emergency, please call 911 immediately. . Non-Emergent Contact Non-Emergency issues call your: Primary Care Provider, Admin Dir, Hospital Doctor, Single Pointed Operator . . "Provider Documentation" section prepared by Jonny Jacobson. .
[2017-12-18] MEDS ORDERED: PERFLUTREN LIPID MICROSPHERE (DEFINITY) IV ONE (14:30)
[2017-12-18 14:59] VITALS: BP 122/81; PULSE 72; TEMP 36.8; O2SAT 97
--- NOTE | 2017-12-18 15:16 | DOBUTAMINE ECHO ---
*NOTICE TO RECEIVING LIBERTARIAN AGENCY This information is strictly Confidential and protected under [place] law. [place] law prohibits you from making any further disclosure of this information unless further disclosure is expressly permitted by the written consent of the person to whom it pertains or is authorized by law. A general authorization for the release of medical or other information is not sufficient for this purpose. Hospital accepts no responsibility if the information is made available to any other person, INCLUDING THE PATIENT. Interpretation Summary * Name: TASHA ADAMSON Study Date: 12/18/2017 09:38 AM BP: 108/76 mmHg * Patient Location: [facility] HR: 76 * : 1965 (M/d/yyyy) Gender: Male Height: 62 in * Age: 52 yrs Ethnicity: [place] Weight: 246 lb * Ordering Physician: Vernon Chand DO, [facility] * Referring Physician: Self, Referred * Performed By: Marisela Hamlin RCS * * Reason For Study: Chest Pain * BSA: 2.1 m2 * -- Conclusions -- * STRESS STUDY: * Normal pharmacologic stress echocardiogram. * No echocardiographic or EKG evidence of myocardial ischemia having achieved heart rate adequate for diagnostic purposes. Procedure Details * DOBUTAMINE ECHO, CPT#53495 * A contrast injection of Definity was performed to improve assessment of LV function. * Contrast was injected into an intravenous site in the right arm. * One vial of Definity ultrasound contrast was diluted in normal saline to a total volume of 10 ml. A total of '4' ml of solution was administered during imaging. * Lot # [id number] of Definity utilized for procedure. * Expiration date 1APR19. * The attending nurse who injected the contrast agent was Amina Carvalho RN. Left Ventricle * Left ventricular ejection fraction at rest is 60-65%(normal). * The left ventricular wall motion is normal at rest. * The left ventricular ejection fraction increases normally with stress. The left ventricular end-systolic cavity size reduces post-stress (normal response). The left ventricular wall motion with stress is normal. * No regional wall motion abnormalities noted. Stress Parameters * The baseline EKG reveals sinus rhythm with incomplete right bundle branch block. The ST segments are normal on the resting EKG * The stress EKG response was negative for inducible ischemia. 1 PVC was noted with the stress EKG. * The stress portion of this study was personally supervised by the undersigned interpreting physician. * Rest heart rate was '76' BPM. * Rest blood pressure was '108/76' * Maximum heart rate achieved was 144 bpm. * Maximum heart rate was 85 % of maximum age-predicted heart rate. * Maximum blood pressure was '164/58' * Maximum Dobutamine infusion rate was '30' mcg/kg/min. * A total of .25 mg of intravenous Atropine was used to supplement Dobutamine for heart rate response. * Dobutamine infusion was terminated due to achieving target heart rate * A total of 5 mg of IV Metoprolol was administered to reverse Dobutamine-induced tachycardia. * Normal blood pressure response to exercise.
--- NOTE | 2017-12-18 21:45 | Discharge Summary ---
Discharge Summary Date of Service Dec 18, 2017. Discharge Summary Admission Date: Dec 15, 2017 at 18:03 Discharge Date: Dec 18, 2017 Discharge Disposition: Home Principal Diagnosis: syncope OTHER ACUTE / NEW DIAGNOSES: fatty liver . Secondary Diagnoses/Problems: Chronic and Resolved Medical Problems: (1) COPD (chronic obstructive pulmonary disease) Status: Chronic (2) Depression Status: Chronic (3) GERD (gastroesophageal reflux disease) Status: Chronic (4) Gout Status: Chronic (5) Hypothyroidism Status: Chronic (6) Hypothyroidism Status: Chronic (8) Nephrolithiasis Status: Chronic (9) Nocturnal hypoxia Status: Chronic (10) Pulmonary sarcoidosis Permanent Comment: s/p VATS Status: Chronic Surgical Problems: (1) H/O vasectomy Status: Chronic . Procedures: Cardiac monitoring CT head MRI brain MRA neck MRA head MRI cervical spine Ultrasound liver Rest echocardiogram Stress echocardiogram . Consultations: Neurology Cardiology . Medication Reconciliation Continued Medications: Acetaminophen (Tylenol) 500 Mg Tab 1000 MG PO Q6 PRN for Headache or Pain, TAB Allopurinol (Zyloprim) 300 Mg Tab 300 MG PO QAM, TAB Citalopram Hydrobromide (Citalopram Hydrobromide) 10 Mg Tab 10 MG PO DAILY for 30 Days, #30 TAB 3 Refills Ergocalciferol (Vitamin D 22095 Unit) 50,000 Unit Cap 1 CAP PO WK Home O2 Therapy (Oxygen) Gas 2 LITERS NA PRN Ipratropium-Albuterol (Duoneb) 3 Ml Nebu 1 TREATMENT INH BID PRN for SOB/Wheezing, INHA Levothyroxine Sodium (Levothyroxine Sodium) 100 Mcg Tab 100 MCG PO DAILY Omeprazole (Prilosec) 20 Mg Capcr 20 MG PO DAILYBB, CAP Umeclidinium [place] (Incruse Ellipta) 62.5 Mcg/Inh Inh 1 DOSE INH QAM Admission Information HPI (per Admitting provider): The patient is a 52-year-old man who presents to the emergency room via EMS reporting a syncopal episode that occurred prior to arrival. Per the patient's , the patient was talking with family and he started with a cough. He then had garbled speech subsequently stood up and passed out onto the floor. After he was down on the ground he continued to jerk "like he was having a seizure." The patient's reports that his arms and legs were moving his eyes were staring straight forward, and he was unresponsive. She states that he was not speaking during this time. This time. Lasted 3-4 minutes after which time the patient was of normal mental status and went to get up off the ground and sit on a chair close by. The patient does not remember the jerking episode. He does remember talking to his shortly after the episode and telling her not to call 911. Review of systems reveals some slight chest pain in the mid substernal region that is been present consistently for the last 2 weeks but is worse with exertion. The patient chronically sweats and has chronic shortness of breath from pulmonary sarcoid without worsening recently, and does not know if these symptoms are related to his chest pain. He otherwise cannot identify a trigger for the chest pain other than the exertion. Another symptom that is worse with exertion is numbness in his hands and his feet bilaterally as well as in his entire face bilaterally. This is a chronic symptom for him. Historically he reports a large amount of blood in his stool a couple of months ago and some intermittent right upper quadrant abdominal pain that has been going on for 2 weeks now. The patient cannot identify a trigger for the abdominal pain. He reports infraumbilical pain that has been there for a couple of years; he reports a normal colonoscopy in the last 12 months. He denies speaking with a doctor about his lower abdominal pain. He reports having chest tightness currently. The patient denies any history of seizures, passing out or any strokelike symptoms in the past. He reports a chronic headache that somewhat appears associated with the face tingling. Aside from the cough that was productive of mucus giving him some nausea this morning, he reports no history of cough recently, no fevers or chills recently. He denies any UTI symptoms or any other infectious symptoms. . Physical Exam (per Admitting): General Appearance: no apparent distress, + obese Head: normocephalic, atraumatic Eyes: normal inspection, PERRL, EOMI, sclerae normal ENT: hearing grossly normal, pharynx normal Neck: supple, no adenopathy, no JVD, trachea midline Respiratory/Chest: lungs clear, normal breath sounds, no respiratory distress, no accessory muscle use, + pertinent finding (Tenderness to palpation of left sternal border) Cardiovascular: regular rate, rhythm, no edema, no gallop, no JVD, no murmur , normal peripheral pulses Abdomen/GI: normal bowel sounds, soft, no organomegaly, + tenderness ( Tenderness to palpation with guarding in right upper quadrant and infraumbilical area) Back: normal inspection Extremities/Musculoskelatal: normal inspection, no pedal edema, normal range of motion Neurologic/Psych: pool attendant II-XII nml as tested, no motor/sensory deficits, alert , normal mood/affect, normal reflexes, oriented x 3, + pertinent finding ( Negative Romberg, negative finger to nose, negative rapid alternating movements) Skin: normal color, warm/dry, no rash Hospital Course SYNCOPE Neuroimaging per CT and MRI negative for acute vascular event. ?? cough syncope. No significant arrhythmias noted on telemetry. EEG negative. Outpatient cardiac event monitor recommended. CHEST PAIN Troponin negative 3. Admission EKG showed possible age-indeterminate inferior infarct, no acute ST or T-wave abnormalities. Cardiology consulted. Rest echocardiogram demonstrated normal left ventricular wall motion and systolic function. Stress echocardiogram did not show any stress-induced ischemia. CARDIOMEGALY Cardiomegaly noted on chest x-ray. Echocardiogram demonstrated normal left ventricular wall thickness, normal size of left and right ventricles. COPD / SARCOIDOSIS Pulmonary status appears to be stable. 2 step pulse oximetry done prior to discharge- O2 sats OK at rest and with exercise on RA. We will need outpatient follow-up with Pulmonary Medicine. FATTY LIVER Noted on abdominal ultrasound. Not diabetic. No current alcohol consumption. Lipid profile unremarkable. MORBID OBESITY Weight 110 kg, BMI 44. AHA diet. VTE PROPHYLAXIS SQ enoxaparin. Ambulate. DISPOSITION Discharge to home. Primary care follow-up with Dr. Dorman. Pulmonary Medicine follow-up with Caesar Chu PA-C. Cardiology follow-up with Dr. Chand. . Total time spent on discharge = 35 min. This includes examination of the patient, discharge planning, medication reconciliation, and communication with other providers. . Discharge Instructions Date of Service Dec 18, 2017. Admission Reason for Admission: passed out . Discharge Discharge Diagnosis / Problem: passed out Discharge Goals Goal(s): Improve disease control Activity Recommendations Activity Limitations: as noted below Driving or Machine Use: no driving until heart monitor report back and OK . Instructions / Follow-Up Instructions / Follow-Up APPOINTMENTS: PRIMARY CARE Dr. Dorman Please call her office for appointment in 1 week. PULMONARY MEDICINE Caesar Chu PA-C as scheduled. CARDIOLOGY Dr[facility] his office will contact you with appointment OTHER INSTRUCTIONS: Seek medical attention if you have: * temperature above 101 * chest pain or trouble breathing * abdominal pain, nausea, vomiting * diarrhea, dark stools or bloody stools * recurrent episodes of passing out * any unanswered questions or concerns Call 911 if symptoms are severe. Call if you have any questions or problems. My cell # is [phone]. You can also reach a Elder hospitalist on duty at [facility] 24 hours a day by calling [phone]. Please take good care of yourself. Jonny Jacobson . Current Hospital Diet Patient's current hospital diet: Regular Diet Discharge Diet Recommended Diet: AHA Diet (Heart Healthy) Pending Studies Studies pending at discharge: no Laboratory Results Lipid Panel Test 12/17/17 06:46 Range/Units Triglycerides Level 146 0-150 mg/dl Cholesterol Level 175 0-200 mg/dl HDL Cholesterol 48 mg/dl Cholesterol/HDL Ratio 3.6 LDL Cholesterol, Calculated 98 mg/dl Medical Emergencies . Who to Call and When: Medical Emergencies: If at any time you feel your situation is an emergency, please call 911 immediately. . Non-Emergent Contact Non-Emergency issues call your: Primary Care Provider, Operater, Hospital Doctor, Safety And Occupational Health Manager . . "Provider Documentation" section prepared by Jonny Jacobson. .. Additional Copies To Vernon Chand D.O.; Leonor Dorman, DO; Caesar Chu PA-C
== END 2017-12-18 15:33 | disposition home or self-care (01) | DRG 312 ==
LOC: C.EDB 13:44 → C.MED 18:03 → ENRESERV 18:27
PROVIDERS: ADMIT Hospitalist; ATTEND Hospitalist
DX: R55 Syncope and collapse (principal); Z68.41 Body mass index [BMI] 40.0-44.9, adult; R07.89 Other chest pain; I51.7 Cardiomegaly; J44.9 Chronic obstructive pulmonary disease, unspecified; D86.9 Sarcoidosis, unspecified; K76.0 Fatty (change of) liver, not elsewhere classified; E66.01 Morbid (severe) obesity due to excess calories; Z82.0 Family history of epilepsy and other diseases of the nervous system

== ENCOUNTER → 2017-12-26 | Outpatient (CLI) | payer OTHER ==
[~2017-12-26] MED LIST changes: +ACET-1256 PO; +ALLO300T2 PO; +CITA10TA4 PO; +ERGO500011 PO; -IPRASOL34 INH; +IPRASOL4 INH; +LEVO100T7 PO; -LEVO88TA3 PO; +OXGN; -SYMIN160 INH; +UMEC1INH INH
[2017-12-26 13:20] LABS: BASO % 0.6 %; BASO ABS # 0.04 K/uL (0-0.2); EOS % 5.1 %; EOS ABS # 0.35 K/uL (0-0.5); HEMOGLOBIN 15.5 g/dL (14.0-18.0); IG# 0.06 K/uL (0.00-0.02); LYMPH % 20.8 %; LYMPH ABS # 1.43 K/uL (1.2-3.4); MEAN CELL VOLUME 91.8 fL (80-100); MEAN CORPUSCULAR HEMOGLOBIN 30.9 pg (25-34); MEAN CORPUSCULAR HGB CONC 33.7 g/dl (32-36); MONO % 11.5 %; MONO ABS # 0.79 K/uL (0.11-0.59); NEUT % 61.1 %; PLATELET COUNT 278 K/uL (130-400); RED CELL DISTRIBUTION WIDTH CV 12.8 % (11.5-14.5); RED CELL DISTRIBUTION WIDTH SD 42.3 fL (36.4-46.3); WHITE BLOOD COUNT 6.87 K/uL (4.8-10.8)
[2017-12-26 14:13] LABS: ALBUMIN 3.9 gm/dl (3.4-5.0); ALT/SGPT 46 U/L (12-78); AST/SGOT 22 U/L (15-37); BLOOD UREA NITROGEN 25 mg/dl (7-18); CARBON DIOXIDE 25 mmol/L (21-32); CREATININE 1.15 mg/dl (0.60-1.40); GLUCOSE 104 mg/dl (70-99); POTASSIUM 4.6 mmol/L (3.5-5.1); SODIUM 136 mmol/L (136-145)
[2017-12-26 14:23] LABS: ALKALINE PHOSPHATASE 96 U/L (45-117); TOTAL PROTEIN 7.9 gm/dl (6.4-8.2)
== END | disposition home or self-care (01) ==
LOC: C.LABPBG 10:02
PROVIDERS: ATTEND Family Medicine
DX: E03.9 Hypothyroidism, unspecified (principal); R10.11 Right upper quadrant pain